=== PATIENT | female | born 1940 | race Caucasian/White ===

== ENCOUNTER 2017-08-03 06:54 | Emergency (ER) | payer MEDICARE ==
[~2017-08-03] VITALS: Ht 154.9 cm; Wt 74.8 kg
[~2017-08-03 06:54] MED LIST: CALCA500CH PO; CHOL10002 PO; Desyrel50 MG PO; FLONASE ALLERG9.9 ML; FLUT44OIA INH; FURO20 PO; GABA300 PO; Hair, Skin & N1 EACH PO; Medi-Lyte Tabl1 EACH PO; Micro-K10 MEQ PO; NORT25 PO; TRAZ50 PO
[2017-08-03] MEDS ORDERED: ATOR40TA (07:24)
[2017-08-03] MEDS ORDERED: METO50 PO (07:25)
[2017-08-03] MEDS ORDERED: AMLO5 PO (07:42)
[2017-08-03] MEDS ORDERED: GABA100 PO (07:42)
[2017-08-03] MEDS ORDERED: TAMS.4ER (07:42)
[2017-08-03] MEDS ORDERED: Cheratussin AC118 ML PO (09:01)
[2018-06-17] MEDS ORDERED: FURO20 PO (11:29)
[2018-06-17] MEDS ORDERED: POTCHL10ER PO (11:30)
[2018-06-17] MEDS ORDERED: NORT25 PO (11:30)
[2018-06-17] MEDS ORDERED: GABA300 PO (11:30)
[2018-06-17] MEDS ORDERED: LETR2.5 PO (11:31)
[2018-06-17] MEDS ORDERED: TRAZ50 PO (11:32)
[2018-06-17] MEDS ORDERED: Amoxicillin250 MG PO (11:34)
== END 2017-08-03 09:29 | disposition home or self-care (01) ==
LOC: ER 06:54
DX: J40 Bronchitis, not specified as acute or chronic (principal); Z79.899 Other long term (current) drug therapy; Z85.3 Personal history of malignant neoplasm of breast; Z90.710 Acquired absence of both cervix and uterus; Z90.49 Acquired absence of other specified parts of digestive tract; Z87.891 Personal history of nicotine dependence
CPT/HCPCS: 71046; 99283

== ENCOUNTER → 2017-12-31 | Outpatient (CLI) | payer MEDICARE ==
[~2017-12-31] MED LIST changes: +AMLO5 PO; +ATOR40TA; +Cheratussin AC118 ML PO; +GABA100 PO; +METO50 PO; +TAMS.4ER
[2017-12-31 15:38] LABS: Source, Urine Catheter
[2017-12-31 17:42] LABS: Bilirubin, Urine Neg (Neg); Blood, Urine Neg (Neg); Glucose Qualitative, Urine Neg (Neg); Ketones, Urine Neg (Neg); Leukocyte Esterase, Urine Neg (Neg); Nitrite, Urine Neg (Neg); Protein, Urine Neg (Neg); Specific Gravity, Urine 1.015 (1.003-1.022); Urobilinogen, Urine NORM (Normal)
[2017-12-31 17:53] LABS: Appearance, Urine Clear (Clear); Color, Urine Pale Yellow (P-Yellow)
== END | disposition home or self-care (01) ==
LOC: OLS 15:26 → LAB SHORT 15:26
PROVIDERS: Nurse Practitioner Women's Health
DX: N89.8 Other specified noninflammatory disorders of vagina (principal); R35.0 Frequency of micturition
CPT/HCPCS: 81003

== ENCOUNTER → 2018-04-06 | Outpatient (CLI) | payer MEDICARE ==
[2018-04-06 15:17] LABS: Source, Urine Catheter
[2018-04-06 15:56] LABS: Bilirubin, Urine Neg (Neg); Blood, Urine Neg (Neg); Glucose Qualitative, Urine Neg (Neg); Ketones, Urine Neg (Neg); Leukocyte Esterase, Urine Neg (Neg); Nitrite, Urine Neg (Neg); Protein, Urine Neg (Neg); Urobilinogen, Urine NORM (Normal)
[2018-04-06 16:28] LABS: Appearance, Urine Clear (Clear); Color, Urine Yellow (P-Yellow)
== END ==
LOC: LAB 15:16 → LAB SHORT 15:16
PROVIDERS: Nurse Practitioner Women's Health
DX: R30.0 Dysuria (principal)
CPT/HCPCS: 81003

== ENCOUNTER 2018-08-27 11:35 | Emergency (ER) | payer MEDICARE ==
[~2018-08-27] VITALS: Ht 157.5 cm; Wt 77.6 kg
[~2018-08-27 11:35] MED LIST changes: +Amoxicillin250 MG PO; +LETR2.5 PO; +POTCHL10ER PO
[2018-08-27 11:55] LABS: Source, Urine Catheter
[2018-08-27 12:27] LABS: BASOPHILS ABSOLUTE AUTO 0.03 K/mm3 (0.00-0.23); BASOPHILS PERCENT AUTO 0 % (0-2); EOSINOPHILS ABSOLUTE AUTO 0.03 K/mm3 (0.00-0.68); EOSINOPHILS PERCENT AUTO 0 % (0-6); Hematocrit 43.1 % (33.0-51.0); Hemoglobin 14.2 g/dL (11.5-16.0); IMMATURE GRAN ABSOLUTE AUTO 0.08 K/mm3 (0.00-0.10); IMMATURE GRAN PERCENT AUTO 0 % (0-1); LYMPHOCYTES ABSOLUTE AUTO 0.87 K/mm3 (0.84-5.20); LYMPHOCYTES PERCENT AUTO 5 % (21-46); MONOCYTES ABSOLUTE AUTO 1.34 K/mm3 (0.16-1.47); MONOCYTES PERCENT AUTO 7 % (4-13); Mean Corpuscular HGB Conc 32.9 g/dL (31.5-36.5); Mean Corpuscular Volume 91 fL (80-100); Mean Platelet Volume 9.3 fL (9.1-12.4); NEUTROPHILS ABSOLUTE AUTO 16.51 K/mm3 (1.96-9.15); NEUTROPHILS PERCENT AUTO 88 % (41-73); Platelet Count 312 K/mm3 (150-400); Red Blood Cell Count 4.73 M/mm3 (3.80-5.20); White Blood Cell Count 18.86 K/mm3 (4.00-11.30)
[2018-08-27 12:44] LABS: Appearance, Urine Clear (Clear); Bilirubin, Urine Neg (Neg); Blood, Urine Neg (Neg); Color, Urine Yellow (P-Yellow); Glucose Qualitative, Urine Neg (Neg); Ketones, Urine Neg (Neg); Leukocyte Esterase, Urine Neg (Neg); Nitrite, Urine Neg (Neg); Protein, Urine Neg (Neg); Specific Gravity, Urine 1.005 (1.003-1.022); Urobilinogen, Urine NORM (Normal)
[2018-08-27 12:47] LABS: International Normalized Ratio 0.97; Prothrombin Time Results 10.3 Sec (9.7-11.5)
[2018-08-27 12:50] LABS: Alanine Aminotransfer (ALT/SGP 24 U/L (12-78); Albumin/Globulin Ratio 1.3 (0.8-1.8); Alk Phos 85 U/L (50-136); Anion Gap 10 mmol/L (6-16); Aspartate Aminotrans (AST/SGOT 15 U/L (12-37); Bilirubin, Total 0.5 mg/dL (0.1-1.0); Blood Urea Nitrogen 13 mg/dL (8-24); Bun/Creatinine Ratio 17.1 (12.0-20.0); CO2, Blood 26 mmol/L (21-32); Calcium, Blood 8.6 mg/dL (8.5-10.1); Chloride, Blood 104 mmol/L (98-108); Creatinine, Blood 0.76 mg/dL (0.40-1.00); Globulin, Blood 3.1 g/dL (2.2-4.0); Glomerular Filtration Rate >60 (60-); Glucose, Blood 86 mg/dL (70-99); Potassium, Blood 3.6 mmol/L (3.5-5.5); Sodium, Blood 140 mmol/L (136-145); Total Protein, Blood 7.1 g/dL (6.4-8.2)
[2018-08-27 12:51] LABS: Influenza A Negative (NEGATIVE); Influenza B Negative (NEGATIVE)
[2018-08-27] MEDS ORDERED: Zofran8 MG PO (14:46)
[2018-08-27] MEDS ORDERED: HYDR1TAB94 PO (14:46)
[2018-08-28] MEDS ORDERED: MELATONIN5 M1 PO (15:40)
== END 2018-08-27 15:01 | disposition home or self-care (01) ==
LOC: ER 11:35
PROVIDERS: Physician Assistant
DX: K52.9 Noninfective gastroenteritis and colitis, unspecified (principal); M54.5 Low back pain; D49.89 Neoplasm of unspecified behavior of other specified sites; Z79.899 Other long term (current) drug therapy; Z87.891 Personal history of nicotine dependence; Z85.3 Personal history of malignant neoplasm of breast
CPT/HCPCS: 36415; 71046; 74177; 80053; 81003; 83605; 85025; 85610; 85730; 87040; 87086; 87147; 87804; 93005; 93010; 96361; 96365-59; 96375; 96376; 99284-25; J0696; J1170; J2405; J7030; Q9967

== ENCOUNTER 2018-08-28 08:18 | Inpatient (IN) | payer MEDICARE ==
[~2018-08-28] VITALS: Ht 154.9 cm; Wt 80.0 kg
[~2018-08-28 08:18] MED LIST changes: +HYDR1TAB94 PO; +Zofran8 MG PO
[2018-08-28 09:16] LABS: BASOPHILS ABSOLUTE AUTO 0.01 K/mm3 (0.00-0.23); BASOPHILS PERCENT AUTO 0 % (0-2); EOSINOPHILS ABSOLUTE AUTO 0.01 K/mm3 (0.00-0.68); EOSINOPHILS PERCENT AUTO 0 % (0-6); Hematocrit 39.1 % (33.0-51.0); Hemoglobin 12.7 g/dL (11.5-16.0); IMMATURE GRAN ABSOLUTE AUTO 0.05 K/mm3 (0.00-0.10); IMMATURE GRAN PERCENT AUTO 1 % (0-1); LYMPHOCYTES ABSOLUTE AUTO 0.86 K/mm3 (0.84-5.20); LYMPHOCYTES PERCENT AUTO 8 % (21-46); MONOCYTES ABSOLUTE AUTO 0.76 K/mm3 (0.16-1.47); MONOCYTES PERCENT AUTO 7 % (4-13); Mean Corpuscular HGB 30.3 pg (26.0-34.0); Mean Corpuscular HGB Conc 32.5 g/dL (31.5-36.5); Mean Corpuscular Volume 93 fL (80-100); Mean Platelet Volume 9.3 fL (9.1-12.4); NEUTROPHILS ABSOLUTE AUTO 9.31 K/mm3 (1.96-9.15); NEUTROPHILS PERCENT AUTO 85 % (41-73); Platelet Count 251 K/mm3 (150-400); RDW Coefficient Variation 14.6 % (11.7-14.2); RDW Standard Deviation 49.8 fL (35.1-46.3); Red Blood Cell Count 4.19 M/mm3 (3.80-5.20)
[2018-08-28 09:36] LABS: Alanine Aminotransfer (ALT/SGP 23 U/L (12-78); Albumin, Blood 3.4 g/dL (3.4-5.0); Albumin/Globulin Ratio 1.1 (0.8-1.8); Alk Phos 74 U/L (50-136); Anion Gap 8 mmol/L (6-16); Aspartate Aminotrans (AST/SGOT 17 U/L (12-37); Bilirubin, Total 0.7 mg/dL (0.1-1.0); Blood Urea Nitrogen 13 mg/dL (8-24); CO2, Blood 30 mmol/L (21-32); Calcium, Blood 8.4 mg/dL (8.5-10.1); Chloride, Blood 100 mmol/L (98-108); Creatinine, Blood 0.93 mg/dL (0.40-1.00); Globulin, Blood 3.2 g/dL (2.2-4.0); Glomerular Filtration Rate >60 (60-); Glucose, Blood 87 mg/dL (70-99); Potassium, Blood 3.7 mmol/L (3.5-5.5); Sodium, Blood 138 mmol/L (136-145); Total Protein, Blood 6.6 g/dL (6.4-8.2)
--- NOTE | 2018-08-28 13:14 | NUR ---
NOTIFIED DR. SCOTT PT CONCERNED ABOUR REDNESS, WARMTH AND FIRMNESS OF L BREAST AND ABOVE GROIN. PT REPORTS SHE DID NOT DISCUSS THIS WITH DR. DR. SCOTT REPORTS TALKING EXTENSIVELY WITH PT ABOUT THIS AND THAT SHE HAS CELLULITIS WHICH IS CURRENTLY BEING TREATED WITH ANTIBIOTICS. DR. SCOTT SAID TO CONTINUE TO MONITOR PT'S MENTAL STATUS. NO OTHER NEW ORDERS AT THIS TIME.
--- NOTE | 2018-08-28 13:56 | NUR ---
NOTIFIED DR. SCOTT PT C/O HEADACHE AND HAS NO PAIN MEDS ORDERED. DR. SCOTT SAID TO ORDER 650MG TYLENOL Q6H PRN. NO OTHER NEW ORDERS AT THIS TIME.
[2018-08-28] MEDS ORDERED: MELATONIN5 M1 PO (15:40)
--- NOTE | 2018-08-28 16:36 | NUR ---
SHIFT SUMMARY- PT NEW ADMIT THIS AFTERNOON. PT C/O PAIN IN HER BACK, L BREAST AND HEADACHE. MEDS GIVEN PER EMAR. PT DENIES N/V/D. PT DENIES SOB. RESP E/U ON RA. PT'S L BREAST AND PELVIC/GROIN AREA RED, WARM AND SWOLLEN. DR. SCOTT AWARE. AREAS OUTLINED IN [place]. INDEPENDENT IN THE ROOM. NO OTHER SIGNIFICANT CHANGES THIS SHIFT.
--- NOTE | 2018-08-28 16:56 | NUR ---
NOTIFIED DR. SCOTT PT REPORTS TYLENOL NOT CONTROLLING HER PAIN. PT REPORTS BEING PRESCRIBED NORCO YESTERDAY WHEN SHE D/C FROM ER. DR. SCOTT SAID TO ORDER NORCO 5/325 Q6H PRN. NO OTHER NEW ORDERS AT THIS TIME.
--- NOTE | 2018-08-28 17:51 | NUR ---
NOTIFIED DR. SCOTT PT REQUESTS TO BE MADE DNR STATUS.
[2018-08-28 20:19] LABS: Source, Urine Clean Catch
[2018-08-28 20:22] LABS: Bilirubin, Urine Neg (Neg); Blood, Urine Neg (Neg); Glucose Qualitative, Urine Neg (Neg); Ketones, Urine Neg (Neg); Leukocyte Esterase, Urine 3+ (Neg); Nitrite, Urine Neg (Neg); Protein, Urine 1+ (Neg); Specific Gravity, Urine 1.005 (1.003-1.022); Urobilinogen, Urine NORM (Normal); pH, Urine 6.5 (5.0-8.0)
[2018-08-28 20:32] LABS: Appearance, Urine Clear (Clear); Color, Urine Pale Yellow (P-Yellow)
[2018-08-28 20:33] LABS: Red Blood Cells, Urine Not Seen /hpf (0-2); White Blood Cells, Urine 25-50 /hpf (0-5)
[2018-08-28 20:34] LABS: Bacteria Rare /hpf; Squamous Epithelial Cells Few /hpf (Few); Transitional Epithelial Cells Few /hpf ({null, 0-Rare})
--- NOTE | 2018-08-29 03:55 | NUR ---
SHIFT SUMMARY PT IS A&O, PLEASANT AND CO-OP. INDEPENDANT TO BTHRM. RESTING QUIETLY IN BED, TALKING ON PHONE, DURING BS REPORT. ADMITTED FOR BACTEREMIA AFTER OUTPT BCX CAME BACK POSITIVE AND PT INSTRUCTED TO RETURN TO HOSPITAL FOR ABX. PT REPORTED REDNESS, WARMTH, AND SWELLING TO L BREAST AND AXILLARY AREA WELL LOWER ABD, DOWN INTO GROIN AND INNER THIGH AREA. PT REPORTED THAT NEW ON FRIDAY AND NOT PRESENT WHEN SHE HAD COME IN TO ER FOR BCX'S THE DAY BEFORE. RED AREA FIRM FROM SWELLING WITH EDGES MARKED. PT WITH HX OF NON-HODGKIN LYPHOMA, LAST CHEMO 08/17/18. HAS REPORTED A HEAD ACHE TWICE THIS SHIFT. MEDICATED PER EMAR. UA OBTAINED AND SENT AFTER START OF SHIFT. SCD'S ON; PT INSTRUCTED HOW TO REMOVE WHEN GETTING UP TO BTHRM. CALL LT IN REACH. ABLE TO MAKE NEEDS KNOWN.
[2018-08-29 05:11] LABS: BASOPHILS ABSOLUTE AUTO 0.02 K/mm3 (0.00-0.23); BASOPHILS PERCENT AUTO 0 % (0-2); EOSINOPHILS ABSOLUTE AUTO 0.09 K/mm3 (0.00-0.68); EOSINOPHILS PERCENT AUTO 1 % (0-6); Hematocrit 39.6 % (33.0-51.0); Hemoglobin 12.6 g/dL (11.5-16.0); IMMATURE GRAN ABSOLUTE AUTO 0.03 K/mm3 (0.00-0.10); IMMATURE GRAN PERCENT AUTO 0 % (0-1); LYMPHOCYTES ABSOLUTE AUTO 1.68 K/mm3 (0.84-5.20); LYMPHOCYTES PERCENT AUTO 22 % (21-46); MONOCYTES ABSOLUTE AUTO 0.98 K/mm3 (0.16-1.47); MONOCYTES PERCENT AUTO 13 % (4-13); Mean Corpuscular HGB 29.9 pg (26.0-34.0); Mean Corpuscular HGB Conc 31.8 g/dL (31.5-36.5); Mean Corpuscular Volume 94 fL (80-100); Mean Platelet Volume 9.3 fL (9.1-12.4); NEUTROPHILS ABSOLUTE AUTO 4.97 K/mm3 (1.96-9.15); NEUTROPHILS PERCENT AUTO 64 % (41-73); Platelet Count 227 K/mm3 (150-400); RDW Coefficient Variation 14.5 % (11.7-14.2); RDW Standard Deviation 49.9 fL (35.1-46.3); Red Blood Cell Count 4.22 M/mm3 (3.80-5.20); White Blood Cell Count 7.77 K/mm3 (4.00-11.30)
[2018-08-29 05:34] LABS: Alanine Aminotransfer (ALT/SGP 20 U/L (12-78); Albumin, Blood 3.1 g/dL (3.4-5.0); Albumin/Globulin Ratio 1.1 (0.8-1.8); Alk Phos 72 U/L (50-136); Anion Gap 6 mmol/L (6-16); Aspartate Aminotrans (AST/SGOT 18 U/L (12-37); Bilirubin, Total 0.5 mg/dL (0.1-1.0); Blood Urea Nitrogen 9 mg/dL (8-24); Bun/Creatinine Ratio 13.4 (12.0-20.0); CO2, Blood 28 mmol/L (21-32); Calcium, Blood 8.6 mg/dL (8.5-10.1); Chloride, Blood 107 mmol/L (98-108); Creatinine, Blood 0.67 mg/dL (0.40-1.00); Globulin, Blood 2.8 g/dL (2.2-4.0); Glomerular Filtration Rate >60 (60-); Glucose, Blood 110 mg/dL (70-99); Potassium, Blood 3.7 mmol/L (3.5-5.5); Sodium, Blood 141 mmol/L (136-145); Total Protein, Blood 5.9 g/dL (6.4-8.2)
--- NOTE | 2018-08-29 17:45 | NUR ---
SHIFT SUMMARY PATIENT HAS BEEN SWITCHED TO ORAL ANTIBIOTICS, NO IV ACCESS OKAYED BY DR. SCOTT. PATIENT HAS BEEN ABLE TO MAKE HER NEEDS KNOWN. NO ACUTE CHANGES NOTED.
--- NOTE | 2018-08-30 06:04 | NUR ---
NOC SHIFT SUMMARY THIS PT HAS BEEN PLEASANT AND COOPERATIVE WITH CARE THIS NIGHT. SHE REQUESTED EARPLUGS EARLY IN THE EVENING AND WENT TO SLEEP AROUND 2200. SHE HAS SLEPT RESTFULLY THIS NIGHT AND HAS NOT COMPLIANED OR REQUESTED ANYTHING. AT PRESENT APPEARS TO BE SLEEPING RESTFULLY. WILL CONTINUE TO MONITOR.
[2018-08-30] MEDS ORDERED: ESCI10 PO (08:04)
[2018-08-30] MEDS ORDERED: LINE600 PO (08:05)
[2018-08-30] MEDS ORDERED: CEPH500 PO (09:56)
--- NOTE | 2018-08-30 13:09 | NUR ---
DISCHARGE SUMMARY: PT IS A&OX4. REPORTS PAIN IS MANAGEABLE WITH 1 PO NORCO. TOLERATED BREAKFAST WELL. D/C MEDICATIONS WERE FAXED TO [facility] ON [address] PER PT REQ. PT AND HER DTR "KARLENE" VERBILIZED UNDERSTANDING OF D/C INSTRUCTIONS. SHE HAS HER BELONGINGS WITH HER. 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
== END 2018-08-30 10:44 | disposition home or self-care (01) | DRG 600 ==
LOC: ER 08:18 → MEDS 08:58 → ENPENDDIS 08-30 07:00 → MEDS 08-30 10:44
PROVIDERS: Emergency Medicine; ADMIT Student in an Organized Health Care Education/Training Program
DX: N61.0 Mastitis without abscess (principal); L03.311 Cellulitis of abdominal wall; R78.81 Bacteremia; C85.90 Non-Hodgkin lymphoma, unspecified, unspecified site; J60 Coalworker's pneumoconiosis; Z92.3 Personal history of irradiation; Z85.3 Personal history of malignant neoplasm of breast; Z87.891 Personal history of nicotine dependence; Z66 Do not resuscitate; R19.09 Other intra-abdominal and pelvic swelling, mass and lump
CPT/HCPCS: 36415; 80053; 81001; 83605; 85025; 87040; 87086; 96361; 96365; 96375; 99284-25; J0692; J1170; J3370; J7050; J7120

== ENCOUNTER → 2018-11-05 | Outpatient (CLI) | payer MEDICARE ==
[~2018-11-05] MED LIST changes: +CEPH500 PO; +ESCI10 PO; +LINE600 PO; +MELATONIN5 M1 PO
== END | disposition home or self-care (01) ==
LOC: LAB EV 14:10 → LAB SHORT 14:10
DX: N39.46 Mixed incontinence (principal)
CPT/HCPCS: 87086

== ENCOUNTER 2019-03-16 12:23 | Day surgery (SDC) | payer MEDICARE ==
[~2019-03-16] VITALS: Ht 154.9 cm; Wt 74.7 kg
[~2019-03-16 12:23] MED LIST changes: +BETA.05TCA TOP; +BETA.05TO TOP; +Flonase 0.05% N16 GM; +Multiple Vitam1 EAC1 PO; +POTA10T PO; +TRAM50 PO; +VITAMIN B125000 MCG PO; +VITAMIN D5000 UNIT PO; +Vitamin C100 M1 PO; +YUVAFEM10 MCG VAG
--- NOTE | 2019-03-16 12:57 | NUR ---
History, Chart, Medications and Allergies reviewed before start of procedure. Patient confirms NPO status and agrees with scheduled surgery.
--- NOTE | 2019-03-16 13:11 | NUR ---
Lungs clear T/O to Auscultation.
--- NOTE | 2019-03-16 13:19 | NUR ---
Patient reports completing Chlorhexadine shower X2 prior to admission to hospital.
[2019-03-17 04:36] LABS: BASOPHILS ABSOLUTE AUTO 0.01 K/mm3 (0.00-0.23); BASOPHILS PERCENT AUTO 0 % (0-2); EOSINOPHILS PERCENT AUTO 0 % (0-6); Hematocrit 33.9 % (33.0-51.0); Hemoglobin 11.4 g/dL (11.5-16.0); IMMATURE GRAN ABSOLUTE AUTO 0.13 K/mm3 (0.00-0.10); IMMATURE GRAN PERCENT AUTO 1 % (0-1); LYMPHOCYTES PERCENT AUTO 5 % (21-46); MONOCYTES ABSOLUTE AUTO 0.94 K/mm3 (0.16-1.47); MONOCYTES PERCENT AUTO 6 % (4-13); Mean Corpuscular HGB 30.8 pg (26.0-34.0); Mean Corpuscular HGB Conc 33.6 g/dL (31.5-36.5); Mean Corpuscular Volume 92 fL (80-100); Mean Platelet Volume 9.4 fL (9.1-12.4); NEUTROPHILS ABSOLUTE AUTO 14.89 K/mm3 (1.96-9.15); NEUTROPHILS PERCENT AUTO 89 % (41-73); Platelet Count 302 K/mm3 (150-400); RDW Coefficient Variation 13.2 % (11.7-14.2); RDW Standard Deviation 44.3 fL (35.1-46.3); White Blood Cell Count 16.77 K/mm3 (4.00-11.30)
[2019-03-17 04:54] LABS: Anion Gap 6 mmol/L (6-16); Blood Urea Nitrogen 14 mg/dL (8-24); Bun/Creatinine Ratio 20.8 (12.0-20.0); CO2, Blood 27 mmol/L (21-32); Chloride, Blood 106 mmol/L (98-108); Creatinine, Blood 0.67 mg/dL (0.40-1.00); Glomerular Filtration Rate >60 (60-); Glucose, Blood 124 mg/dL (70-99); Magnesium, Blood 1.9 mg/dL (1.6-2.4); Potassium, Blood 4.3 mmol/L (3.5-5.5); Sodium, Blood 139 mmol/L (136-145)
--- NOTE | 2019-03-17 07:55 | NUR ---
pt wanting to brush her teeth nursery nurse assisted up to chair pt stated pain is min stated her upper leg feels swollen and yesterday had some numbness to her toes but it has resolved
--- NOTE | 2019-03-17 10:29 | NUR ---
PT DONE WORKING WITH PHYSICAL THERAPY OK TO GO HOME TODAY
[2019-03-17] MEDS ORDERED: OXYC5 PO (13:58)
--- NOTE | 2019-03-17 14:00 | NUR ---
dr montejo by to see pt ok to discharge home
[2019-03-17] MEDS ORDERED: ASPI325EC PO (14:29)
--- NOTE | 2019-03-17 14:45 | NUR ---
discharge instructions reviewed with pt verbalized rx given dressing also given with instructions on when to change will have diego look at the dressing prior to discharge to see if it needs changed nicholas or sund
--- NOTE | 2019-03-17 15:10 | NUR ---
wc escort to car no acute changes
== END 2019-03-17 15:02 | disposition home or self-care (01) ==
LOC: ORSCMMR 12:23 → ORD 14:45 → ORSCMMR 18:33 → SURS 18:33 → ORSCMMR 03-17 15:02
PROVIDERS: Orthopaedic Surgery
PROC: 0SRC0J9 Replacement of Right Knee Joint with Synthetic Substitute, Cemented, Open Approach (ICD-10-PCS; principal; 2019-03-16 14:45)
DX: M17.11 Unilateral primary osteoarthritis, right knee (principal); G62.9 Polyneuropathy, unspecified; Z79.899 Other long term (current) drug therapy; Z87.891 Personal history of nicotine dependence
CPT/HCPCS: 36415; 73560-RT; 80048; 83735; 85025; 86850; 86900; 86901; 88300; 97110; 97116; 97161; 97530; C1776; J0171; J0690; J0735; J1100; J1885; J2250; J2370; J2405; J2704; J2795; J3010; J7120; Q0163

== ENCOUNTER 2020-04-29 05:52 | Inpatient (IN) | payer MEDICARE, OTHER ==
[~2020-04-29] VITALS: Ht 154.9 cm; Wt 83.3 kg
[~2020-04-29 05:52] MED LIST changes: +ASPI325EC PO; +OXYC5 PO
[2020-04-29 07:57] LABS: BASOPHILS PERCENT AUTO 0 % (0-2); EOSINOPHILS PERCENT AUTO 0 % (0-6); Hematocrit 38.6 % (33.0-51.0); Hemoglobin 12.5 g/dL (11.5-16.0); IMMATURE GRAN ABSOLUTE AUTO 0.02 K/mm3 (0.00-0.10); IMMATURE GRAN PERCENT AUTO 0 % (0-1); LYMPHOCYTES ABSOLUTE AUTO 0.84 K/mm3 (0.84-5.20); LYMPHOCYTES PERCENT AUTO 17 % (21-46); MONOCYTES ABSOLUTE AUTO 0.48 K/mm3 (0.16-1.47); MONOCYTES PERCENT AUTO 10 % (4-13); Mean Corpuscular HGB 30.1 pg (26.0-34.0); Mean Corpuscular HGB Conc 32.4 g/dL (31.5-36.5); Mean Corpuscular Volume 93 fL (80-100); Mean Platelet Volume 9.7 fL (9.1-12.4); NEUTROPHILS ABSOLUTE AUTO 3.67 K/mm3 (1.96-9.15); NEUTROPHILS PERCENT AUTO 73 % (41-73); Platelet Count 174 K/mm3 (150-400); RDW Standard Deviation 47.4 fL (35.1-46.3); Red Blood Cell Count 4.15 M/mm3 (3.80-5.20); White Blood Cell Count 5.01 K/mm3 (4.00-11.30)
[2020-04-29 08:13] LABS: Alanine Aminotransfer (ALT/SGP 18 U/L (12-78); Albumin, Blood 3.2 g/dL (3.4-5.0); Alk Phos 72 U/L (50-136); Anion Gap 8 mmol/L (6-16); Aspartate Aminotrans (AST/SGOT 22 U/L (12-37); Bilirubin, Total 0.3 mg/dL (0.1-1.0); Blood Urea Nitrogen 9 mg/dL (8-24); Bun/Creatinine Ratio 14.3 (12.0-20.0); CO2, Blood 24 mmol/L (21-32); Calcium, Blood 7.9 mg/dL (8.5-10.1); Chloride, Blood 105 mmol/L (98-108); Creatinine, Blood 0.63 mg/dL (0.40-1.00); Globulin, Blood 3.2 g/dL (2.2-4.0); Glomerular Filtration Rate >60 (60-); Glucose, Blood 94 mg/dL (70-99); Magnesium, Blood 1.8 mg/dL (1.6-2.4); Potassium, Blood 2.9 mmol/L (3.5-5.5); Sodium, Blood 137 mmol/L (136-145); Total Protein, Blood 6.4 g/dL (6.4-8.2)
[2020-04-29] MEDS ORDERED: ESCI20 PO (11:55)
[2020-04-29] MEDS ORDERED: K-Dur10 MEQ PO (11:56)
[2020-04-29] MEDS ORDERED: LETROZOLE2.5 MG PO (11:56)
[2020-04-29] MEDS ORDERED: TRAZ150T57 PO (11:56)
[2020-04-29] MEDS ORDERED: FUROSEMIDE20 MG PO (11:57)
[2020-04-29] MEDS ORDERED: NORT25 PO ×2 (11:57→12:05)
[2020-04-29] MEDS ORDERED: Hair, Skin & N1 EACH PO (12:06)
[2020-04-29] MEDS ORDERED: TRAZ50 PO (12:07)
[2020-04-29 13:51] LABS: Source, Urine Clean Catch
[2020-04-29 14:00] LABS: Appearance, Urine Clear (Clear); Bilirubin, Urine Neg (Neg); Blood, Urine Neg (Neg); Color, Urine Yellow (P-Yellow); Glucose Qualitative, Urine Neg (Neg); Ketones, Urine 3+ (Neg); Leukocyte Esterase, Urine Neg (Neg); Nitrite, Urine Neg (Neg); Protein, Urine 1+ (Neg); Specific Gravity, Urine 1.015 (1.003-1.022); Urobilinogen, Urine NORM (Normal)
--- NOTE | 2020-04-29 15:07 | NUR ---
PT ARRIVED TO PCU 7 FROM ED, DAUGHTER IN ATTENDENCE, SHE IS COVID +, SHE IS ABLE TO STAND AND TRANSFER HERSELF TO BED FROM [facility], A/OX3, PLEASANT AND COOPERATIVE WITH CARE, FOLLOWS COMMANDS WELL, REPORTS SHE IS FEELING A LOT BETTER THAN WHEN SHE FIRST CAME IN, LUNGS ARE COURSE T/O, RESP EVEN AND UNLABORED, IS CURRENTLY ON 4 LITERS 02 VIA N/C, REPORTS OCC PRODUCTIVE COUGH, HRR, TELE IN PLACE RUNNING SR PER MONITOR, SEE STRIP, NO EDEMA NOTED, PPP+1, CAP REFILL <3SEC, VS STABLE, AFEBRILE, IV SITE IS CLEAR AND PATENT TO RAC, HUNG NS WITH 20K+, AT RATE OF 100MLS/HR, BTX4, HYPERACTIVE, REPORTS VERY LIQUID STOOLS AND WAS GIVEN AN IMMODIUM, NO STOOLS SINCE, VOIDS WIHTOUT DIFF, SKIN C/W/D, PRECIOUS HENDRIX, ORIENTED TO ROOM LAYOUT AND CALL SYSTEM, CALL LIGTH IN REACH.
--- NOTE | 2020-04-29 18:29 | NUR ---
PT DOING OK, SHE DOESN'T HAVE AN APPETITE, IS WATCHING TV. V.S. STABLE, NO FURTHER CHANGES. CALL LIGHT IN REACH.
[2020-04-30 04:39] LABS: BASOPHILS PERCENT AUTO 0 % (0-2); EOSINOPHILS PERCENT AUTO 0 % (0-6); Hematocrit 40.6 % (33.0-51.0); IMMATURE GRAN ABSOLUTE AUTO 0.01 K/mm3 (0.00-0.10); IMMATURE GRAN PERCENT AUTO 0 % (0-1); LYMPHOCYTES ABSOLUTE AUTO 0.59 K/mm3 (0.84-5.20); LYMPHOCYTES PERCENT AUTO 21 % (21-46); MONOCYTES ABSOLUTE AUTO 0.31 K/mm3 (0.16-1.47); MONOCYTES PERCENT AUTO 11 % (4-13); Mean Corpuscular HGB 30.1 pg (26.0-34.0); Mean Corpuscular Volume 94 fL (80-100); Mean Platelet Volume 9.8 fL (9.1-12.4); NEUTROPHILS ABSOLUTE AUTO 1.88 K/mm3 (1.96-9.15); NEUTROPHILS PERCENT AUTO 67 % (41-73); Platelet Count 164 K/mm3 (150-400); RDW Standard Deviation 49.1 fL (35.1-46.3); Red Blood Cell Count 4.32 M/mm3 (3.80-5.20); White Blood Cell Count 2.79 K/mm3 (4.00-11.30)
[2020-04-30 05:04] LABS: Alanine Aminotransfer (ALT/SGP 18 U/L (12-78); Albumin, Blood 2.7 g/dL (3.4-5.0); Albumin/Globulin Ratio 0.9 (0.8-1.8); Alk Phos 69 U/L (50-136); Anion Gap 8 mmol/L (6-16); Aspartate Aminotrans (AST/SGOT 32 U/L (12-37); Bilirubin, Total 0.2 mg/dL (0.1-1.0); Blood Urea Nitrogen 8 mg/dL (8-24); CO2, Blood 20 mmol/L (21-32); Calcium, Blood 7.8 mg/dL (8.5-10.1); Chloride, Blood 114 mmol/L (98-108); Creatinine, Blood 0.42 mg/dL (0.40-1.00); Globulin, Blood 3.1 g/dL (2.2-4.0); Glomerular Filtration Rate >60 (60-); Glucose, Blood 131 mg/dL (70-99); Magnesium, Blood 1.8 mg/dL (1.6-2.4); Potassium, Blood 3.6 mmol/L (3.5-5.5); Sodium, Blood 142 mmol/L (136-145); Total Protein, Blood 5.8 g/dL (6.4-8.2)
--- NOTE | 2020-04-30 06:18 | NUR ---
SHIFT SUMMARY PT A&O X4, ANSWERS QUESTIONS APPROPRIATELY. SP02>94% ON 3L NC. PT HAS A PRODUCTIVE COUGH. C/O OF "RATTLE" IN HER CHEST. RESPIRATORY IN TO SEE PT. GAVE PT A PICKLE DEVICE. THIS RN WITNESSED PT USING PICKLE MULTIPLE TIMES. PT STATES IT HELPS CLEAR THE RATTLE. TELEMETRY READS SR 70'S. PT DENIES CP/PRESSURE. PT UP TO BSC WITH SBA AND WALKER. PT HAS OCCASIONAL INCONTINENCE WHEN COUGHING, DRY ATTENDS PLACE. NS W/ KCL INFUSING PER EMAR. WILL CONTINUE TO MONITOR.
--- NOTE | 2020-04-30 17:45 | NUR ---
SHIFT SUMMARY PT IS ALERT AND ORIENTEDx4. PT HAS REMAINED ON 3L NC TODAY AND HER O2 SATS REMAIN STABLE AT REST. WITH ACTIVITY TO [facility]. PT WILL BECOME DYSPNIC AND O2 SATS WILL DECREASE TO MID 80'S AND PT WOULD TAKE A COUPLE MINUTES TO RECOVER HER OXYGEN LEVELS. PT DID TOLERATE, WITH NO DROP IN SPO2, SITTING UP IN CHAIR. PT HAD BACK PAIN THIS AFTER NOON, TREATED WITH PRN PAIN MEDS AND REPOSITIONED TO SIT IN CHAIR. PT'S PAIN IMPROVED AND SHE FELT BETTER SITTING IN CHAIR. VITALS HAVE REMAINED STABLE TODAY. TELEMETRY HAS SHOWN PT TO BE IN NSR.
[2020-05-01 04:04] LABS: BASOPHILS PERCENT AUTO 0 % (0-2); EOSINOPHILS PERCENT AUTO 0 % (0-6); Hemoglobin 12.6 g/dL (11.5-16.0); IMMATURE GRAN ABSOLUTE AUTO 0.02 K/mm3 (0.00-0.10); IMMATURE GRAN PERCENT AUTO 0 % (0-1); LYMPHOCYTES PERCENT AUTO 15 % (21-46); MONOCYTES ABSOLUTE AUTO 0.64 K/mm3 (0.16-1.47); MONOCYTES PERCENT AUTO 12 % (4-13); Mean Corpuscular HGB 29.6 pg (26.0-34.0); Mean Corpuscular HGB Conc 32.3 g/dL (31.5-36.5); Mean Corpuscular Volume 92 fL (80-100); NEUTROPHILS ABSOLUTE AUTO 3.84 K/mm3 (1.96-9.15); NEUTROPHILS PERCENT AUTO 72 % (41-73); Platelet Count 202 K/mm3 (150-400); RDW Standard Deviation 47.3 fL (35.1-46.3); Red Blood Cell Count 4.25 M/mm3 (3.80-5.20)
[2020-05-01 04:30] LABS: Alanine Aminotransfer (ALT/SGP 27 U/L (12-78); Albumin, Blood 2.7 g/dL (3.4-5.0); Albumin/Globulin Ratio 0.9 (0.8-1.8); Alk Phos 69 U/L (50-136); Anion Gap 6 mmol/L (6-16); Aspartate Aminotrans (AST/SGOT 43 U/L (12-37); Bilirubin, Total 0.3 mg/dL (0.1-1.0); Blood Urea Nitrogen 10 mg/dL (8-24); Bun/Creatinine Ratio 19.2 (12.0-20.0); CO2, Blood 26 mmol/L (21-32); Calcium, Blood 7.8 mg/dL (8.5-10.1); Chloride, Blood 111 mmol/L (98-108); Creatinine, Blood 0.52 mg/dL (0.40-1.00); Glomerular Filtration Rate >60 (60-); Glucose, Blood 156 mg/dL (70-99); Magnesium, Blood 2.1 mg/dL (1.6-2.4); Potassium, Blood 3.7 mmol/L (3.5-5.5); Sodium, Blood 143 mmol/L (136-145); Total Protein, Blood 5.7 g/dL (6.4-8.2)
--- NOTE | 2020-05-01 06:45 | NUR ---
SHIFT SUMMARY: JONATHAN IS A&OX4. VSS, NO ACUTE EVENTS OVERNIGHT. SHE IS MAINTAINING O2 SATURATIONS ON 4 L NC. SHE IS A ONE PERSON ASSIST TO THE BEDSIDE COMMODE. SHE STATES THAT SHE FEELS SITTING UP IN THE CHAIR YESTERDAY WAS EFFECTIVE FOR ALLEVIATING HER CHRONIC BACK PAIN AND ASSISTING HER TO BREATHE DEEPER. SHE WAS ENCOURAGED TO SIT UP IN THE CHAIR TODAY AND TO USE THE PRN RESPIRATORY TX IF NEEDED. SHE IS TOLERATING PO INTAKE WELL. ATTENDS IN PLACE. SHE USES THE CALL LIGHT APPROPRIATELY. SHE IS LYING IN BED WITH THE CALL LIGHT IN REACH. WILL REPORT TO DAY SHIFT RN.
--- NOTE | 2020-05-01 19:46 | NUR ---
SUMMARY NO ACUTE CHANGES NOTED THROUGH THE DAY. PT REMAINS ON 3L O2 VIA NC, VSS, 1 ASSIST IN THE ROOM. SHE WAS ABLE TO AMBULATE A FEW STEPS TO THE BSC, STAND TO BRUSH HER TEETH & WAS ENC TO B AND B GANG WORKER PLACE USING HER FWW IN FRONT OF HER CHAIR TO STRENGHTHEN HER LEGS AND ENC DEEP BREATHING. O2 SATS REMAIN >94% WITH ACTIVITY. NORCO GIVEN FOR PAIN, PT IS TOLERATING PO INTAKE, VOIDING WNL, BM REPORTED TODAY. PT'S DAUGHTER HAS BEEN IN THE ROOM TODAY WITH HER & WILL ASSIST WITH CARE. REPORT GIVEN TO MONO LOPEZ.
--- NOTE | 2020-05-02 05:56 | NUR ---
SHIFT SUMMARY PATIENT PLEASENT AND COOPERATIVE THROUGHOUT THE NIGHT. PATIENT UP IN CHAIR FOR SEVERAL HOURS AT THE BEGINNING OF THE SHIFT BUT THEN MOVED BACK TO THE BED. PATIENT ABLE TO TRANSFER SELF FROM THE CHAIR TO THE BE WITH SBA. PATIENT THEN APPEARED TO SLEEP WELL THROUGHOUT THE REST OF THE NIGHT. CONTINUOUS BIOX IN PLACE, PATIENT REMAINED ON 3L O2 VIA N/C. VITAL SIGNS CHARTED. WILL CONTINUE TO MONITOR PATIENT AND REPORT TO ONCOMING RN.
--- NOTE | 2020-05-02 17:06 | NUR ---
SHIFT SUMMARY PT A&Ox3; CALM AND COOPERATIVE WITH CARE. PT RESTING IN BED. UP TO CHIAR AND BSC WITH SBA. PT REPORTS BACK PAIN, MEDICATED x1 WITH POSITIVE RESULTS. PT SOB WITH EXERTION; STATES COUGH IS DRY; SPO2 >90% ON 3L O2 VIA NC THIS AM TITRATED DOWN TO 2L O2 VIA NC. PT JOSETTE NAUSEA AND DIZZINESS. VSS. NO OTHER ACUTE CHANGES NOTED DURING SHIFT. WILL CONTINUE TO MONITOR UNTIL REPORT GIVEN TO ONCOMING RN.
--- NOTE | 2020-05-03 06:01 | NUR ---
SHIFT SUMMARY NO ACUTE CHANGES THIS SHIFT. MEDICATED FOR PAIN X2. PT SLEPT T/O THE NIGHT. PT IS LAYING IN BED WITH EYES CLOSED, EVEN AND UNLABORED RESPIRATIONS. NO APPARENT NEEDS OR DISTRESS AT THIS TIME. CALL LIGHT AND PERSONAL ITEMS WITHIN REACH. BED IN LOWERED POSITION. WILL CONTINUE TO MONITOR UNTIL REPORT GIVEN TO DAY RN.
[2020-05-03] MEDS ORDERED: PROAIR RESPICL90 MCG INH (14:10)
[2020-05-03] MEDS ORDERED: AZIT250 PO (14:11)
[2020-05-03] MEDS ORDERED: DEXA2 PO (14:15)
[2020-05-03] MEDS ORDERED: CEFD300 PO (14:16)
--- NOTE | 2020-05-03 18:34 | NUR ---
DISCHARGE SUMMARY PT A&Ox4; CALM AND COOPERATIVE WITH CARE. PT RESTING IN BED DURING SHIFT. UP TO BSC WITH SBA. PT REPORTS BACK PAIN AND HEADACHE THIS AM; MEDICATED PER EMAR WITH POSITIVE RESULTS. PT REPORTS SOB AND COUGH IMPROVING. SPO2 >90% ON 1-2L O2 VIA NC; HOME O2 EVAL COMPLETED; O2 ORDERS [facility] TO ROOM TO PROVIDE PORTABLE O2 TANK. PT RECEIVING IV ANTIBIOTICS, IV REMDESIVIR AND PO STEROIDS. VSS. NOT OTHER ACUTE CHAGES NOTED DURING SHIFT. PT EDUCATED ON DISCHARGE INSTRUCTIONS, FOLLOW UP APPOINTMENTS, MEDICATIONS AND ISOLATION. PRESCRIPTIONS FAXED TO [facility]; FOR DELIVERY SERVICE. PT LEFT ROOM VIA WHEELCHAIR AT 1332.
== END 2020-05-03 15:36 | disposition home or self-care (01) | DRG 871 ==
LOC: ER 05:52 → PCU 10:40
PROVIDERS: Emergency Medicine; ADMIT Family Medicine
PROC: XW033E5 Introduction of Remdesivir Anti-infective into Peripheral Vein, Percutaneous Approach, New Technology Group 5 (ICD-10-PCS; principal; 2020-04-29)
PROC: XW033E5 Introduction of Remdesivir Anti-infective into Peripheral Vein, Percutaneous Approach, New Technology Group 5 (ICD-10-PCS; 2020-04-30)
PROC: XW033E5 Introduction of Remdesivir Anti-infective into Peripheral Vein, Percutaneous Approach, New Technology Group 5 (ICD-10-PCS; 2020-04-30)
PROC: XW033E5 Introduction of Remdesivir Anti-infective into Peripheral Vein, Percutaneous Approach, New Technology Group 5 (ICD-10-PCS; 2020-04-30)
PROC: XW033E5 Introduction of Remdesivir Anti-infective into Peripheral Vein, Percutaneous Approach, New Technology Group 5 (ICD-10-PCS; 2020-04-30)
DX: A41.89 Other specified sepsis (principal); U07.1 COVID-19; J12.89 Other viral pneumonia; J96.01 Acute respiratory failure with hypoxia; J44.1 Chronic obstructive pulmonary disease with (acute) exacerbation; R65.20 Severe sepsis without septic shock; Z96.651 Presence of right artificial knee joint; E66.9 Obesity, unspecified; E86.0 Dehydration; Z90.12 Acquired absence of left breast and nipple; E87.6 Hypokalemia; Z87.891 Personal history of nicotine dependence; J84.10 Pulmonary fibrosis, unspecified; G47.00 Insomnia, unspecified; Z99.81 Dependence on supplemental oxygen; Z68.32 Body mass index [BMI] 32.0-32.9, adult; B37.7 Candidal sepsis
CPT/HCPCS: 36415; 71045; 80053; 83605; 83735; 84145; 85025; 86140; 87040; 93005; 93010; 94667; 94760; 94761; 94762; 96361; 96365; 96367; 99285-25; A9270; A9270-GY; J0456; J0696; J1650; J3480; J7030; J7050; U0003

== ENCOUNTER 2020-05-11 16:30 | Inpatient (IN) | payer MEDICARE, OTHER ==
[~2020-05-11] VITALS: Ht 154.9 cm; Wt 71.8 kg
[~2020-05-11 16:30] MED LIST changes: +AZIT250 PO; +CEFD300 PO; +DEXA2 PO; +ESCI20 PO; +FUROSEMIDE20 MG PO; +K-Dur10 MEQ PO; +LETROZOLE2.5 MG PO; +PROAIR RESPICL90 MCG INH; +TRAZ150T57 PO
[2020-05-11 17:08] LABS: BASOPHILS ABSOLUTE AUTO 0.02 K/mm3 (0.00-0.23); BASOPHILS PERCENT AUTO 0 % (0-2); EOSINOPHILS PERCENT AUTO 0 % (0-6); Hematocrit 43.7 % (33.0-51.0); Hemoglobin 14.5 g/dL (11.5-16.0); IMMATURE GRAN ABSOLUTE AUTO 0.08 K/mm3 (0.00-0.10); IMMATURE GRAN PERCENT AUTO 1 % (0-1); LYMPHOCYTES ABSOLUTE AUTO 1.37 K/mm3 (0.84-5.20); LYMPHOCYTES PERCENT AUTO 13 % (21-46); MONOCYTES ABSOLUTE AUTO 0.73 K/mm3 (0.16-1.47); MONOCYTES PERCENT AUTO 7 % (4-13); Mean Corpuscular HGB 30.3 pg (26.0-34.0); Mean Corpuscular HGB Conc 33.2 g/dL (31.5-36.5); Mean Corpuscular Volume 91 fL (80-100); Mean Platelet Volume 9.4 fL (9.1-12.4); NEUTROPHILS ABSOLUTE AUTO 8.27 K/mm3 (1.96-9.15); NEUTROPHILS PERCENT AUTO 79 % (41-73); Platelet Count 397 K/mm3 (150-400); RDW Coefficient Variation 13.9 % (11.7-14.2); RDW Standard Deviation 46.6 fL (35.1-46.3); Red Blood Cell Count 4.78 M/mm3 (3.80-5.20); White Blood Cell Count 10.47 K/mm3 (4.00-11.30)
[2020-05-11 17:19] LABS: Alanine Aminotransfer (ALT/SGP 51 U/L (12-78); Albumin, Blood 2.7 g/dL (3.4-5.0); Albumin/Globulin Ratio 0.7 (0.8-1.8); Alk Phos 115 U/L (50-136); Anion Gap 8 mmol/L (6-16); Aspartate Aminotrans (AST/SGOT 51 U/L (12-37); Bilirubin, Total 0.4 mg/dL (0.1-1.0); Blood Urea Nitrogen 13 mg/dL (8-24); Bun/Creatinine Ratio 25.1 (12.0-20.0); CO2, Blood 25 mmol/L (21-32); Calcium, Blood 8.9 mg/dL (8.5-10.1); Chloride, Blood 104 mmol/L (98-108); Creatinine, Blood 0.52 mg/dL (0.40-1.00); Globulin, Blood 4.1 g/dL (2.2-4.0); Glomerular Filtration Rate >60 (60-); Glucose, Blood 180 mg/dL (70-99); Potassium, Blood 4.5 mmol/L (3.5-5.5); Sodium, Blood 137 mmol/L (136-145); Total Protein, Blood 6.8 g/dL (6.4-8.2)
[2020-05-11 18:13] LABS: PCO2 Arterial 31.9 mmHg (35-45); PO2 Arterial 64.1 mmHg (80-100)
--- NOTE | 2020-05-11 22:24 | NUR ---
ADMIT NOTE PT ARRIVED @ 2112 [facility] [employer] FROM THE ER. TX TO ICU BED WITH MINIMAL ASSISTANCE. PT BECOMES SOB QUICKLY UPON EXERTION. PT A&OX4. ON 9LPM O2 VIA [place] NC c O2 SATS >90%. FINE CRACKLES T/O LUNG ESTEVEZ. OCCASIONAL COUGH, WILL ATTEMPT TO COLLECT A SPUTUM SAMPLE. MRSA NASAL SWAB COLLECTED AND SENT TO THE LAB. NSR IN THE 70'S ON THE EMPLOYEE RELATION MANAGER. BP STABLE. AFEBRILE. 20 GA IV LOC L WRIST. WILL CONTINUE TO MONITOR.
--- NOTE | 2020-05-12 05:36 | NUR ---
SHIFT SUMMARY NO CHANGES IN NEURO STATUS. OXYMIZER INCREASED TO 15LPM WHILE SLEEPING DUE TO O2 SATS DROPPING TO THE HIGH 80'S. NASAL PRONGS ALSO MOVED TO MOUTH PT IS A MOUTH BREATHER WHILE SLEEPING. PT ASSISTED TO BEDSIDE COMMODE AROUND 0400, UNABLE TO URINATE AT THAT TIME. BECAME APNEIC WITH MINIMAL EXERTION, O2 SATS DROPPED TO HIGH 80'S ON 15LPM 02 VIA OXYMIZER. ONCE BACK IN BED, PT TOOK ABOUT 3-5 MINS TO CATCH HER BREATH WITH COACHING. LS REMAIN DIMINISHED WITH CRACKLES. PULMONARY CONSULT IN THE AM.
--- NOTE | 2020-05-12 12:30 | NUR ---
REASSESMENT O2 HAS BEEN DECREASED TO 10L OXYMIZER AND PT MAINTAINS SPO2 >92% AT REST. PT DOES DROP SPO2 WITH ACTIVITY TO LOW 80'S, BUT RECOVERS AFTER RESTING WITH CURRENTLY NO NEED TO INCREASE O2 FOR RECOVERY. BILATERAL LUNGS NOTED TO HAVE FINE CRACKLES IN BASES. PT WAS ABLE TO VOID THIS MORNING AND HAD ADEQUATE OUTPUT. VITALS HAVE REMAINED STABLE, MONITOR CONTINUES TO SHOW PT IN SINUS RHYTHM.
--- NOTE | 2020-05-12 17:54 | NUR ---
SHIFT SUMMARY PT IS ALERT AND ORIENTEDx4, VERY PLEASANT TO WORK WITH. INITIALLY PT WAS ON 15L OF O2 VIA OXYMIZER. SLOWLY WEANED PT DOWN ON O2, WITH LOWEST ATTEMPT OF 8L OXYMIZER. PT WASN'T ABLE TO MAINTAIN HER SPO2 AND WAS TURNED UP TO 9L. PT REPORTS THAT HER COUGH IS "MUCH IMPROVED", DRY AND NON-PRODUCTIVE. PT HAS BEEN SBA TO USE BSC AND WILL DROP HER SPO2 WITH ACTIVITY AND SLOWLY IMPROVE WITH REST, OCCASSIONALY HAD TO TEMPORY INCREASE O2, ALLOW PT TO RECOVER AND RETURN O2 BACK TO PREVIOUS LEVEL. VITALS HAVE BEEN STABLE, MONITOR SHOWS PT TO BE IN NSR.
--- NOTE | 2020-05-12 20:00 | NUR ---
ASSUMPTION OF CARE PT AWAKE IN BED, ORIENTED x4, ON 10L PER OXYMIZER TO MAINTAIN O2 SATURATIONS> 88%, MONITOR SHOWS SINUS RHYTHM WITH HR 60'S-70'S, BP STABLE. PT REPORTS SOB ONLY WITH EXERTION, INCENTIVE SPIROMETER AT BEDSITE, PT UNDERSTANGS USE. DENIES ANY GI/ ISSUES. PT SBA TO BSC, CALL LIGHT WITHIN REACH, PT USING APPROPRIATELY.
--- NOTE | 2020-05-13 01:30 | NUR ---
INCREASED OXYGEN NEEDS PT MAINTAINING O2 SATURATIONS 80-85% ON 15L PER OXYMIZER, SAT PT UP IN FOWLERS POSITION, NO IMPROVEMENT, PT DECLINED PRONING AT THIS TIME. NEW ORDER FOR AIRVO, NOTIFIED CECILIA JOHNSTON, PT PLACED ON AIRVO 50L 83% FIO2.
--- NOTE | 2020-05-13 06:56 | NUR ---
SHIFT SUMMARY PT RESTED WELL THIS SHIFT, REMAINS AROUSABLE AND ORIENTED x4, PT ON AIRVO 50L AND FIO2 TITRATED TO 94%, MONITOR SHOWS SINUS RHYTHM WITH HR 70'S, PT HYPERTENSIVE WITH SBP 150'S-160'S. PT SBA TO BSC, TOLERATED WELL THIS SHIFT. CALL LIGHT WITHIN REACH, PT USES APPROPRIATELY.
--- NOTE | 2020-05-13 10:56 | NUR ---
ASSUMED CARE THIS AM AT 0700. AT BEDSIDE AT 0730. PT SLIGHTLY ANXIOUS ABOUT PROGNOSIS BUT FELT IN BETTER SPIRITS AFTER HAIRPIECE STYLIST. PT DOES HAS SOME DYSPNEA W EXERTION BUT SATS >90%. PT INITIALLY ON AIRVO 50L/94%. PT TITRATED DOWN TO 50L/50% AFTER BEDBATH. PT OOB TO CHAIR TOLERATING WELL. PT ABLE TOLERATE BREAKFAST. PT'S MAIN COPMPLAINT IS SOB W EXERTION AND A HEADACHE. FINE CRACKLES APPRECIATED TO BILAY LOWER LOBES. SATS TO REMAIN AROUND 88%-90% PER DR SOLIS. DR SOLIS AT BEDSIDE NOW EVALUATING PT. PT'S DAUGHTER KARLENE GIVEN UPDATE VIA PHONE W PT'S PERMISSION.
--- NOTE | 2020-05-13 12:21 | NUR ---
PT AGITATED AGAIN, PACING IN ROOM, WALKING OUT OF ROOM, MAKING DEMANDS. PT APPEARS PARANOID AND MAKING ACCUSATIONS THAT SHE IS BEING LIED TO BY STAFF. PT W RAPID AND PRESSURED SPEECH. PT REQUESTING THAT WE NOTE THAT SHE NEVER AGREED TO BE PLACED ON A HOLD. THE HOLD PROCESS WAS EXPLAINED TO PT BUT SHE IS NOT RECEPTIVE TO INFORMATION AT THIS TIME. PT REQUESTING SOMETHING FOR HER NICOTINE ADDICTION, NORCO, AND HER HYSCYAMINE. PT IS DEMANDING MID DAY PILLS FOR HER "BIPOLAR". PT'S RX GLASSES GIVEN TO HER.
--- NOTE | 2020-05-13 12:39 | NUR ---
PT ASSITED TO BEDSIDE COMMODE TO VOID. PT W DYSPNEA W EXERTION. SATS DROPPED TO 70%. 02 INCREASED TO 50L/80% THEN DOWN TO 60% AFTER ABOUT 5 MIN; IT TOOK PT ABOUT FIVE MIN TO RECOVER SATS BACK TO 88%-90%. SATS NOW STABLE AT 90-95%. PT EATING LUNCH. DR SOLIS GIVEN A FULL UPDATE.
--- NOTE | 2020-05-13 16:27 | NUR ---
PT RESTING IN BED WATCHING TV. AIRVO REMAINS AT 50L/60%, SATS 88-94%. PT STATES SHE FEELS MUCH BETTER THAN THIS AM. PT IS NOW ICU STATUS. PT DENIES C/O PAIN INCLUDING HEADACHE SHE HAD.
[2020-05-13 21:32] LABS: Creatinine, Blood 0.55 mg/dL (0.40-1.00); Vancomycin, Trough 5.4 ug/mL (5.0-10.0)
--- NOTE | 2020-05-13 22:00 | NUR ---
ASSUMPTION OF CARE PT ALERT AND ORIENTED x4, AIRVO @ 50L AND FIO2 59% TO MAINTAIN O2 SATURATIONS> 90%, MONITOR SHOWS SINUS RHYTHM, HR 60'S, PT HYPERTENSIVE. TEMPERATURE OF 100.1, PT REPORTS FEELING HOT, ROOM TEMPERATURE AT LOWEST SETTING, FAN AT BEDSIDE, ICE PACKS PROVIDED. PT DENIES GI/ ISSUES AT THIS TIME. PT REPOSITIONS SELF IN BED, CALL LIGHT WITHIN REACH, PT USING APPROPRIATELY.
[2020-05-14 03:48] LABS: BASOPHILS ABSOLUTE AUTO 0.02 K/mm3 (0.00-0.23); BASOPHILS PERCENT AUTO 0 % (0-2); EOSINOPHILS ABSOLUTE AUTO 0.01 K/mm3 (0.00-0.68); EOSINOPHILS PERCENT AUTO 0 % (0-6); Hematocrit 40.2 % (33.0-51.0); Hemoglobin 13.3 g/dL (11.5-16.0); IMMATURE GRAN ABSOLUTE AUTO 0.11 K/mm3 (0.00-0.10); IMMATURE GRAN PERCENT AUTO 1 % (0-1); LYMPHOCYTES ABSOLUTE AUTO 1.25 K/mm3 (0.84-5.20); LYMPHOCYTES PERCENT AUTO 7 % (21-46); MONOCYTES ABSOLUTE AUTO 1.05 K/mm3 (0.16-1.47); MONOCYTES PERCENT AUTO 6 % (4-13); Mean Corpuscular HGB 29.8 pg (26.0-34.0); Mean Corpuscular HGB Conc 33.1 g/dL (31.5-36.5); Mean Corpuscular Volume 90 fL (80-100); Mean Platelet Volume 9.4 fL (9.1-12.4); NEUTROPHILS ABSOLUTE AUTO 14.74 K/mm3 (1.96-9.15); NEUTROPHILS PERCENT AUTO 86 % (41-73); Platelet Count 472 K/mm3 (150-400); RDW Coefficient Variation 13.6 % (11.7-14.2); Red Blood Cell Count 4.46 M/mm3 (3.80-5.20); White Blood Cell Count 17.18 K/mm3 (4.00-11.30)
[2020-05-14 04:08] LABS: Alanine Aminotransfer (ALT/SGP 98 U/L (12-78); Albumin, Blood 2.5 g/dL (3.4-5.0); Albumin/Globulin Ratio 0.6 (0.8-1.8); Alk Phos 107 U/L (50-136); Anion Gap 7 mmol/L (6-16); Aspartate Aminotrans (AST/SGOT 42 U/L (12-37); Bilirubin, Total 0.4 mg/dL (0.1-1.0); Blood Urea Nitrogen 14 mg/dL (8-24); Bun/Creatinine Ratio 25.4 (12.0-20.0); CO2, Blood 27 mmol/L (21-32); Calcium, Blood 8.7 mg/dL (8.5-10.1); Chloride, Blood 105 mmol/L (98-108); Creatinine, Blood 0.55 mg/dL (0.40-1.00); Globulin, Blood 3.9 g/dL (2.2-4.0); Glomerular Filtration Rate >60 (60-); Glucose, Blood 115 mg/dL (70-99); Potassium, Blood 3.4 mmol/L (3.5-5.5); Sodium, Blood 139 mmol/L (136-145); Total Protein, Blood 6.4 g/dL (6.4-8.2)
--- NOTE | 2020-05-14 06:36 | NUR ---
SHIFT SUMMARY PT RESTED T/O SHIFT, AROUSES TO VERBAL STIMULI, REMAINS ORIENTED x4, PT ON AIRVO 50L FIOW 74% TO MAINTAIN O2>90%, O2 SATURATIONS CONTINUE TO DECREASE SIGNIFICANTLY WITH ACTIVITY, RECOVERS WELL WITH REST. PT HYPERTENSIVE THIS SHIFT, NEW ORDER FOR LABETALOL IV, NOT ADMINISTERED THIS SHIFT. NO GI/ ISSUES THIS SHIFT. CALL LIGHT WITHIN REACH, PT USES APPROPRIATELY.
--- NOTE | 2020-05-14 08:15 | NUR ---
AM NOTE ASSUMED CARE OF PT APROX 0700, PT IS A&Ox4 AND SBA IN THE ROOM. PT WAS ON AIRVO 50L AT 73%FIO2 WITH O2 STATS >90% PT'S O2 SATS DROPPED SLIGHTLY WITH TRANSFER TO THE C TO VOID SHE RECOVERED QUICKLY. PT'S OTHER VS STABLE. L/S CLEAR IN THE UPPER LOBES FINE CRACKLES NOTED IN THE BASES. BT PRESENT AND HYPOACTIVE ABD IS SOFT AND NONTENDER TO PALP. NO EDEMA NOTED ON ASSESSMENT. PT REQUESTING TO GET UP AND SIT IN THE CHAIR FOR BREAKFAST PT HAS BEEN IN NSR IN THE 60'S-70'S. PT HAS BEEN AFEBRILE. PT HAS ALSO BEEN USING HER I.S. AND FLUTTER VALVE INDEPENDENTLY. CALL LIGHT IN REACH WILL CONTINUE TO MONITOR
--- NOTE | 2020-05-14 17:45 | NUR ---
SHIFT SUMMARY... NO ACUTE NEGATIVE CHANGES NOTED THIS SHIFT. PT HAS BEEN TITRATED ON THE AIRVO TO 45L AND 60% FIO2 PT'S WITH PT'S O2 SATS >90% PT'S VS HAVE BEEN STABLE T/O SHIFT. PT REFUSED TO HAVE HER BP TAKEN FROM 0800 TO 1500 SHE SAID SHE JUST WANTED TO SLEEP AND THE BP CUFF HURT HER ARM. PT HAS GOTTEN UP TO THE CHAIR FOR EACH MEAL THIS SHIFT. PT DOES WELL WITH TRANSFERS TO THE BSC, RECLINER CHAIR AND BED. PT STATED THAT SHE HAS NOT HAD A BM SINCE ADMIT, BOWEL CARE OBTAINED AND WILL START TONIGHT. CALL LIGHT IN REACH WILL CONTINUE TO MONITOR UNTIL REPORT IS GIVEN TO ONCOMING RN.
--- NOTE | 2020-05-14 23:46 | NUR ---
CARE ASSUMED 1900 PT RESTING IN BED ON AIRVIO AT 45 L, FIO2 69%, SPO2 92%. PT A/O TO SURROUNDS, DATE/TIME, EVENT, AND ABLE TO FOLLOW DIRECTIONS. PT ABLE TO CHANGE POSITIONS IN BED ON HER OWN. LUNG SOUNDS DIMINISHED T/O. PT APPEARS ANXIOUS AT TIMES, ASKING QUESTIONS ABOUT CT SCAN RESULTS AND IF I HAVE SEEN PTS RECOVER WITH COVID. SAT WITH PT TO DISCUSS FEELINGS FURTHER AND EXPLAINED THAT EVERY PT IS DIFFERENT BUT WE ARE HERE TO HELP HER. LOWER EXTREMS COOL TO TOUCH, PT RECIEVED WARM BLANKETS. PT STATES SHE HAS NOT BEEN ABLE TO SLEEP AND WOULD LIKE TO GET SOME REST TONIGHT. PT APPEARS BOTHERED AND FRUSTRATED WITH NURSING CARE/MEDICAL EQUIPMENT (BP CUFF, CARDIAC MONITORING LINES, AND PULSE OX). DISCUSSED ICU CARE WITH PT AND PT AGREES TO ALLOW Q4 REASSESSMENT/BP/CONTINUES CARDIAC/OXYGEN MONITOR BUT OTHERWISE, WOULD LIKE TO BE LEFT ALONE TO SLEEP. CALL LIGHT WITHIN REACH AND PT STATES SHE KNOWS HOW TO USE IT. WILL CONTINUES TO MONTIOR.
--- NOTE | 2020-05-15 01:49 | NUR ---
UPDATE - HYPERTENSION DURING MIDNIGHT ASSESSMENT PTS BP INCREASED TO 180/79, PULSE 93, SPO2 92 ON 45 L OF AIRVO WITH FIO2 68%. PT RECIEVED 10 MG (2ML) PUSH OF LABETALOL WITH GOOD EFFECT, BP 139/72, HR 66, SPO2 94. PT TO [facility], PT QUICKLY STARTED TO DESTAT (SPO2 70'S), AIRVO FIO2 INCREASED TO 95%. AFTER RETURNING TO BED PT SLOWLY RECOVERED AND SPO2 RETURNED TO 93%. AIRVO DECREASED FIO2 68%. PT DID NOT APPEAR TO HAVE SOB DURING EVENT AND REPORTS NO PAIN. PT STATES SHE WILL LIKE TO SLEEP AND DOES NOT WANT TO HAVE BP ON WRIST. WILL CONTINUE TO MONITOR.
[2020-05-15 06:11] LABS: Anion Gap 9 mmol/L (6-16); Blood Urea Nitrogen 15 mg/dL (8-24); Bun/Creatinine Ratio 26.9 (12.0-20.0); CO2, Blood 24 mmol/L (21-32); Calcium, Blood 8.7 mg/dL (8.5-10.1); Chloride, Blood 105 mmol/L (98-108); Creatinine, Blood 0.56 mg/dL (0.40-1.00); Glomerular Filtration Rate >60 (60-); Glucose, Blood 81 mg/dL (70-99); Magnesium, Blood 1.9 mg/dL (1.6-2.4); Phosphorus, Blood 3.5 mg/dL (2.5-4.9); Potassium, Blood 4.2 mmol/L (3.5-5.5); Sodium, Blood 138 mmol/L (136-145)
--- NOTE | 2020-05-15 06:26 | NUR ---
SHIFT SUMMARY PT CONTINUES TO BE ON AIRVO, FIO2 68% WITH 45 L, SPO2 > 92%. PT WAS ABLE TO REST T/O THE SHIFT AND REQUIRED ATTENTION ONLY DURING SHIFT ASSESSMENTS. PER PTS REQUEST NURSING CARE WAS NOT PROVIDED HOURLY, INSTEAD ONLY DURING ASSESSMENTS. PT WAS THANKFUL FOR GETTING SOME REST. VSS T/O SHIFT. BP ONLY TAKEN DURING ASSESSMENTS PER PTS REQUESTS. PTS BP REMAINED SBP < 150 AFTER RECEIVING DOSE OF LABETALOL (SEE LAST UPDATE). NO SIGNIFICANT CHANGES T/O SHIFT. PT CONTINUES TO DESTAT DURING ACTIVITY (WHEN UP TO BSC).
[2020-05-15 07:01] LABS: BASOPHILS ABSOLUTE AUTO 0.01 K/mm3 (0.00-0.23); BASOPHILS PERCENT AUTO 0 % (0-2); EOSINOPHILS PERCENT AUTO 0 % (0-6); Hematocrit 37.8 % (33.0-51.0); Hemoglobin 12.7 g/dL (11.5-16.0); IMMATURE GRAN ABSOLUTE AUTO 0.09 K/mm3 (0.00-0.10); IMMATURE GRAN PERCENT AUTO 1 % (0-1); LYMPHOCYTES ABSOLUTE AUTO 0.57 K/mm3 (0.84-5.20); LYMPHOCYTES PERCENT AUTO 4 % (21-46); MONOCYTES ABSOLUTE AUTO 0.78 K/mm3 (0.16-1.47); MONOCYTES PERCENT AUTO 6 % (4-13); Mean Corpuscular HGB 30.4 pg (26.0-34.0); Mean Corpuscular HGB Conc 33.6 g/dL (31.5-36.5); Mean Corpuscular Volume 90 fL (80-100); Mean Platelet Volume 9.2 fL (9.1-12.4); NEUTROPHILS ABSOLUTE AUTO 11.88 K/mm3 (1.96-9.15); NEUTROPHILS PERCENT AUTO 89 % (41-73); Platelet Count 352 K/mm3 (150-400); RDW Coefficient Variation 13.6 % (11.7-14.2); RDW Standard Deviation 45.1 fL (35.1-46.3); Red Blood Cell Count 4.18 M/mm3 (3.80-5.20); White Blood Cell Count 13.33 K/mm3 (4.00-11.30)
[2020-05-15 07:19] LABS: Anion Gap 9 mmol/L (6-16); Blood Urea Nitrogen 16 mg/dL (8-24); Bun/Creatinine Ratio 27.8 (12.0-20.0); CO2, Blood 26 mmol/L (21-32); Calcium, Blood 8.9 mg/dL (8.5-10.1); Chloride, Blood 106 mmol/L (98-108); Creatinine, Blood 0.58 mg/dL (0.40-1.00); Glomerular Filtration Rate >60 (60-); Glucose, Blood 85 mg/dL (70-99); Potassium, Blood 3.8 mmol/L (3.5-5.5); Sodium, Blood 141 mmol/L (136-145)
--- NOTE | 2020-05-15 11:09 | NUR ---
PT IS DENYING CURRENT DISTRESS, HOWEVER PT MOD SOB WITH EXERTION OF GETTING OOB. PT IS VERY AWARE OF STATUS AND WILLING TO COMMUNICATE WISHES. PT AIRVO SETTINGS ARE NOTED.
--- NOTE | 2020-05-15 11:25 | NUR ---
1015 PT HAS BEEN OB TO CHAIR AND NOW RETURNING TO BED BY WAY OF BSC. PT SATS DOWN TO LOW 70 RANGE AND SLOW TO RECOVER. RR UPPER 34-40 RANGE.
--- NOTE | 2020-05-15 22:52 | NUR ---
CARE ASSUMED 1900 PT RESTING IN CHAIR AND WATCHING TV. AIRVIO AT 45 L WITH FIO2 AT 63%, SPO2 >92%. PT STATES SHE IS "FEELING BETTER". PT REQUIRES A STANDBY ASSIST UP TO BEDSIDE CAMMDO FROM CHAIR BUT QUICKLY DESTATS TO SPO2 77 %, DEINES CP AND SOB. SLOW RECOVERY WHEN RETURNING TO BED. PT HAD MEDIUM BM AND RETURNED BACK TO BED. PT A/O X 4. PT WOULD LIKE TO SLEEP. POWERGLIDE IN PLACE, FLUSHED AND RETURNING BLOOD WELL. CALL LIGHT WITHIN REACH.
[2020-05-16 04:33] LABS: BASOPHILS ABSOLUTE AUTO 0.01 K/mm3 (0.00-0.23); BASOPHILS PERCENT AUTO 0 % (0-2); EOSINOPHILS ABSOLUTE AUTO 0.05 K/mm3 (0.00-0.68); EOSINOPHILS PERCENT AUTO 0 % (0-6); Hematocrit 38.8 % (33.0-51.0); IMMATURE GRAN ABSOLUTE AUTO 0.11 K/mm3 (0.00-0.10); IMMATURE GRAN PERCENT AUTO 1 % (0-1); LYMPHOCYTES ABSOLUTE AUTO 0.58 K/mm3 (0.84-5.20); LYMPHOCYTES PERCENT AUTO 4 % (21-46); MONOCYTES ABSOLUTE AUTO 0.79 K/mm3 (0.16-1.47); MONOCYTES PERCENT AUTO 6 % (4-13); Mean Corpuscular HGB 30.1 pg (26.0-34.0); Mean Corpuscular HGB Conc 33.5 g/dL (31.5-36.5); Mean Corpuscular Volume 90 fL (80-100); NEUTROPHILS ABSOLUTE AUTO 12.46 K/mm3 (1.96-9.15); NEUTROPHILS PERCENT AUTO 89 % (41-73); Platelet Count 351 K/mm3 (150-400); RDW Coefficient Variation 13.5 % (11.7-14.2); RDW Standard Deviation 44.4 fL (35.1-46.3); Red Blood Cell Count 4.32 M/mm3 (3.80-5.20)
[2020-05-16 04:48] LABS: Anion Gap 6 mmol/L (6-16); Blood Urea Nitrogen 15 mg/dL (8-24); Bun/Creatinine Ratio 30.7 (12.0-20.0); CO2, Blood 27 mmol/L (21-32); Calcium, Blood 8.5 mg/dL (8.5-10.1); Chloride, Blood 105 mmol/L (98-108); Creatinine, Blood 0.49 mg/dL (0.40-1.00); Glomerular Filtration Rate >60 (60-); Glucose, Blood 96 mg/dL (70-99); Potassium, Blood 4.1 mmol/L (3.5-5.5); Sodium, Blood 138 mmol/L (136-145)
[2020-05-16 05:05] LABS: PCO2 Arterial 28.7 mmHg (35-45); PO2 Arterial 74.1 mmHg (80-100); pH Blood Arterial 7.56 (7.35-7.45)
--- NOTE | 2020-05-16 06:11 | NUR ---
SHIFT SUMMARY PT SLEEPING T/O SHIFT. DURING 4 AM ASSESSMENT PT UP TO BEDSIDE BSC WITH STANDBY ASSIST. PT QUICKLY DESATURATED, SPO2 67%. PT DENIES CP BUT STATES HAVING SOB. PT MOVED BACK TO BED, FIO2 INCREASED TO 95% ON AIRVO WITH 45 L. PT RECOVERED SHORTLY AFTER. RT CALLED IN TO SEE PT DUE TO SPO2 DECREASING (83-85%) WHILE PT MOVING TO SIT-UP IN BED TO WATCH TV. AIRVO SETTINGS CHANGED TO 55 L AND FIO2 OF 78%, SPO2 96%. PT STATES HAVING A HEADACHE, TREATED PER EMAR. AT END OF SHIFT PT SITTING IN BED WATCHING TV. CALL LIGHT WILL IN REACH. WILL REPORT TO ONCOMING SHIFT. VSS.
--- NOTE | 2020-05-16 09:52 | NUR ---
SUBJECTIVELY PT WOB IS LESS AND MORE RELAXED THIS AM DISPTITE INC SETTINGS OF O2 NEEDS. PT UP TO CHAIR AND HR ONLY UP 15-20 POINTS AND LESS DESAT ONLY DOWN TO 85 RANGE AND RECOVERED MORE QUICKLY.
--- NOTE | 2020-05-16 13:17 | NUR ---
PT HAS BEEN UP IN CHAIR SENCE B-FAST AND TOLERATING WELL. PT REMAINS MOTIVATED TO IMPROVE AND USING I.S. AND FLUTTER VALVE WELL. PT CONT. TO APPEAR LIKE SHE IS LESS SOB AND DOES RECOVER BETTER TODAY ON EXERTION. WILL FOLLOW.
--- NOTE | 2020-05-16 17:23 | NUR ---
PT REMAINS VERY A/O AND O2 STAUTS UNCHANGED THIS DAY. HOWEVER, PT CONT TO HAVE LESS WOB DISTRESS AND HAS BEEN UP IN THE CHAIR ALL DAY AND CONTINUES TO WORK ON FLUTTER AND I.S. VALVE. PT DENIES PAIN OR OTHER DISTRESS. PT IS EATING WELL HAND HAS VOIDED. REMAINS SR WITH VSS.
--- NOTE | 2020-05-16 20:32 | NUR ---
ASSUMED CARE: PT A&O. AWAKE IN BED. PLEASANT AND COOPERATIVE WITH CARE. AFEBRILE. IN SR. HR IN THE 60S. SBP IN THE 140S. LUNG SOUNDS CLEAR, DIM IN BASES. ON AIRVO. SPO2 >90%. ON 55L AND FIO2 78%. TOLERATING WELL. BT X 4. PT IS ABLE TO TAKE PO MEDS WELL. VOIDS AND IS UP TO TOILET WITH A STANDBY ASSIST. PG TO LISSETTE THAT IS SL. BED IS IN LOWEST POSITION, CALL LIGHT IN REACH. SPOKE WITH PT REGARDING CARE TONIGHT AND PLAN IS TO LET HER REST MUCH POSSIBLE. SHE IS AGREEABLE AND THANKFUL FOR THAT. WILL CONTINUE TO MONITOR.
[2020-05-17 04:22] LABS: Anion Gap 8 mmol/L (6-16); Blood Urea Nitrogen 14 mg/dL (8-24); Bun/Creatinine Ratio 30.1 (12.0-20.0); CO2, Blood 23 mmol/L (21-32); Calcium, Blood 8.4 mg/dL (8.5-10.1); Chloride, Blood 104 mmol/L (98-108); Creatinine, Blood 0.47 mg/dL (0.40-1.00); Glomerular Filtration Rate >60 (60-); Glucose, Blood 151 mg/dL (70-99); Potassium, Blood 3.8 mmol/L (3.5-5.5); Sodium, Blood 135 mmol/L (136-145)
--- NOTE | 2020-05-17 04:54 | NUR ---
PT UP TO COMMODE. PT BECOMES SOB AND DYSPNEIC WITH ACTIVITY, DESATS INTO THE 60S. TAKES AWHILE FOR HER TO RECOVER. UP TO 55L ON AIRVO. PT COACHED ON TAKING SLOW DEEP BREATHS. CURRENTLY SPO2 97%.
--- NOTE | 2020-05-17 05:54 | NUR ---
SHIFT SUMMARY: NO ACUTE CHANGES SINCE LAST NOTE. PT DID COMPLAIN OF SLIGHT HEADACHE THIS AM. TYLENOL GIVEN WITH GOOD EFFECT. WILL PASS REPORT TO ONCOMING SHIFT
--- NOTE | 2020-05-17 08:45 | NUR ---
ASSUMED CARE REPORT RECIEVED. UPON ENTERING THE ROOM, PT IS AWAKE, ALERT, AND ORIENTED. PT IN PRONE POSITION FROM RT ASSISTANCE. PT STATES PRONING IS UNCOMFORTABLE. PT POSITIONED BACK TO SUPINE FOR MEDS AND BREAKFAST. PT ON AIRVO AT 55L, FIO2 72%. PT WITH DYSPNEA WITH ANY MOVEMENT/EXERTION. VITAL SIGNS STABLE. POWERGLIDE TO LISSETTE C/D/I, SALINE LOCKED. PT EXPRESSES FRUSTRATIONS WITH CURRENT ILLNESS AND WANTING TO GET OUT OF THE HOSPITAL. THERAPUTIC REASSURANCE GIVEN AND DISCUSSED PLAN OF CARE WITH PT. PT SITTING UP EATING BREAKFAST AT THIS TIME. WILL CONTINUE TO MONITOR.
--- NOTE | 2020-05-17 18:09 | NUR ---
SHIFT SUMMARY NO ACUTE CHANGES THIS SHIFT. PT REMAINED ON AIRVO THROUGHOUT THE SHIFT. CURRENT SETTINGS 60L, FIO2 72%. PT REMAINS ALERT AND ORIENTED. PT COMPLAINS OF FATIGUE AND BEING TIRED OF BEING IN THE HOSPITAL. PT COMPLAINS OF SOB WITH ANY ACTIVITY. PT UP TO BSC TO VOID. ATTENDS IN PLACE. PT WITH DROP IN SPO2 TO 70'S WITH ACTIVITY, WITH LONG RECOVERY TIME. POWERGLIDE TO LISSETTE C/D/I, SALINE LOCKED. PT WITH POOR APPETITE THROUGHOUT THE DAY. WILL CONTINUE TO MONITOR AND REPORT OFF TO ONCOMING RN.
--- NOTE | 2020-05-17 20:00 | NUR ---
ASSUMED CARE: PT A&O. STAYED IN BED MOST OF THE DAY. REQUIRED MORE O2 TODAY. AIRVO AT 70-80& AND 60L TO MAINTAIN SPO2 >90%. CRACKLES STILL PRESENT AT BASES. SPOKE WITH PT ABOUT A PLAN FOR THE NIGHT. SHE STATED SHE HAD HOPED TO GET INTO THE CHAIR DURING THE DAY BUT FELT TO TIRED. OFFERED TO GET HER UP TO CHAIR IN THE EVENING AND SHE WAS AGREEABLE TO THAT. PCT ANTONIO GOT PT UP TO CHAIR. SHE HAD A BRIEF MOMENT OF DESATTING BUT WAS ABLE TO RECOVER AND MAINTAIN SATS AT 94%. SHE FEELS A LITTLE DEPRESSED, BELIEVING THAT SHE IS GOING TO . TRIED TO REASSURE HER THAT HER RECOVERY MAY TAKE TIME AND HER ABILITY TO GET OUT OF BED AND INTO THE CHAIR WAS A POSITIVE SIGN. OFFERED TO GATHER BOOKS OR MAGAZINES. ASKED IF SHE WOULD LIKE A VISIT FROM SPIRITUAL CARE. SHE STATED MAGAZINES WOULD BE NICE. DECLINED VISIT FROM SPIRITUAL CARE. PT WAS ABLE TO GET OUT OF CHAIR AND USE COMMODE THEN GO BACK TO BED WITH MINIMAL DESAT. GOAL FOR THE NIGHT IS FOR PT TO REST MUCH POSSIBLE. SHE IS AGREEABLE TO THAT. WILL CONTINUE TO MONITOR
[2020-05-18 05:20] LABS: PCO2 Arterial 33.1 mmHg (35-45); pH Blood Arterial 7.49 (7.35-7.45)
[2020-05-18 05:21] LABS: PO2 Arterial 48.7 mmHg (80-100)
--- NOTE | 2020-05-18 06:01 | NUR ---
SPOKE WITH DR GUERRERO RE PT CRITICALLY LOW PO2 OF 48.7 THIS AM. PT IS DNR/DNI. CESAR AWARE OF PTS INCREASED O2 NEEDS (FIO2 90%). NO CHANGES TO ORDERS. KEEP PT ON AIRVO AT CURRENT SETTINGS.
--- NOTE | 2020-05-18 06:04 | NUR ---
SHIFT SUMMARY: PT WAS ABLE TO REST MAJORITY OF NIGHT. SHE DID REQUIRE AN INCREASE IN FIO2 WHILE SLEEPING D/T DESATS. CURRENTLY ON 60L AND 90% FIO2. PT DOES NOT APPEAR TO BE IN ANY DISTRESS AT THIS TIME. WILL PASS REPORT TO ONCOMING SHIFT
[2020-05-18 06:24] LABS: Anion Gap 11 mmol/L (6-16); Blood Urea Nitrogen 17 mg/dL (8-24); Bun/Creatinine Ratio 37.4 (12.0-20.0); CO2, Blood 22 mmol/L (21-32); Calcium, Blood 9.2 mg/dL (8.5-10.1); Chloride, Blood 101 mmol/L (98-108); Creatinine, Blood 0.46 mg/dL (0.40-1.00); Glomerular Filtration Rate >60 (60-); Glucose, Blood 132 mg/dL (70-99); Magnesium, Blood 1.8 mg/dL (1.6-2.4); Potassium, Blood 3.6 mmol/L (3.5-5.5); Sodium, Blood 134 mmol/L (136-145)
--- NOTE | 2020-05-18 08:00 | NUR ---
ASSUMED CARE REPORT RECIEVED. UPON ENTERING ROOM PT IS AWAKE, ALERT, AND ORIENTED. PT IS COMPLAINING OF HEADACHE. PT MED WITH TYLENOL PER EMAR. PT ON AIRVO 60L, FIO2 88%. PT SPO2 91% AT REST. PT SPO2 DROPS TO LOW 80'S WITH MINIMAL EXERTION. OTHERWISE VITAL SIGNS STABLE. POWERGLIDE TO LISSETTE C/D/I, SALINE LOCKED. PT WITH ATTENDS IN PLACE. WILL CONTINUE TO MONITOR.
--- NOTE | 2020-05-18 10:47 | NUR ---
Initial [facility] Care referral. - We have been following pt from a distance with daily checkins with pt's nurses. Received call with request that we visit pt today per RN and Sleeve Setter. EMR reviewed and case conferenced with both RN and auto accessories installer prior to my visit. Pt had expressed frustration, fatigue and questions regarding hospice yesterday. Pt's O2 needs have increased via airvo and condition has worsened in past 24 hours. I introduced myself and purpose of my visit to Savita. She was glad for the visit. We reviewed her prior health hx, quality of life, both of which she described as good. She reports being very energetic and active. She does not appear her 80 years. Pt states if she were to start to improve she feels she would have the strength and motivation to complete the long recovery and rehab required to return to her prior level of health. We discussed the options available going forward per her care providers. She is familiar with hospice as a family member of resp failure in the past year. We talked about comfort care/hospice in the hosptial. We discussed options being offered if her respiratory status were to decline further. She is very clear that she does not want to be intubated under any circumstances. Non invasive respiratory support discussed in form of Bipap. She is willing to try the bipap to give her more time to start to improve but would not want to be on it for more than 24 hours. If her condition worsens in the next 24 hours she would like to transition to comfort care. If she is not able to communicate with us as she worsens, she wants us to transition her to comfort care. She has not spoken to her daughter on the phone for a couple of days due to increasing dyspnea. I offered and pt asked if I would update her rima on her condition and our conversation, which I did. I spoke with Deangelo for 20 minutes. She has been calling ICU staff periodically for updates and appreciated the call. She and her mom had many conversations re: advanced care planning even prior to this illness and she is 100% in support of her mom's wishes and plans. She would like to be called with any changes in condition or goals of care. Pt reports she is not hurting or feeling distressed other than, "not being able to breath". Pt appears dyspnic and anxious with her respiratory effort. She is alert and oriented x 4. She denies any needs at this time. She has her cell phone fully charged but turned off on her table and call light was moved closer to her before I left. With pt's permission, I gave her a foot rub before I left and she verbalized appreciation for that. Plan is for [facility] to reassess tomorrow. Pt aware that she can request comfort care at any point she feels she would like to transition her goals and that care givers will keep her apprised of trends regularly so she can make the best decisions for herself.
[2020-05-18 11:40] LABS: Alanine Aminotransfer (ALT/SGP 53 U/L (12-78); Albumin, Blood 2.2 g/dL (3.4-5.0); Albumin/Globulin Ratio 0.5 (0.8-1.8); Alk Phos 100 U/L (50-136); Aspartate Aminotrans (AST/SGOT 25 U/L (12-37); Bilirubin, Direct 0.1 mg/dL (0.0-0.3); Bilirubin, Indirect 0.2 mg/dL (0.1-0.7); Bilirubin, Total 0.3 mg/dL (0.1-1.0); Cholesterol 156 mg/dL (50-200); Globulin, Blood 4.2 g/dL (2.2-4.0); Total Protein, Blood 6.4 g/dL (6.4-8.2); Triglycerides 145 mg/dL (30-160)
--- NOTE | 2020-05-18 17:50 | NUR ---
SHIFT SUMMARY NO ACUTE CHANGES THIS SHIFT. PT HAS REMAINED ALERT AND ORIENTED. PT DAUGHTER IN TO VISIT THIS AFTERNOON. PT SPIRITS IMPROVED AND PT APPEARS TO BE MORE CHEERFUL. PT REMAINS ON AIRVO AT 60L, FIO2 95% AT THIS TIME. PT WITH EPISODES OF DESATTING WITH ANY ACTIVITY. PT IS AGREEABLE TO TRY BIPAP IF NEEDED, BUT REMAINS ON AIRVO AT THIS TIME. VITAL SIGNS STABLE. POWERGLIDE TO LISSETTE C/D/I. PT UP TO CHAIR THIS AFTERNOON AND REQUESTING TO STAY IN BEDSIDE CHAIR AT THIS TIME. WILL CONTINUE TO MONITOR AND REPORT OFF TO ONCOMING RN.
--- NOTE | 2020-05-18 20:00 | NUR ---
ASSUMED CARE: PT AWAKE, IN CHAIR, WATCHING TV. VSS. REMAINS ON AIRVO. CRACKLES AT BASES OF LUNGS. PLAN IS TO LET HER SLEEP/REST MUCH POSSIBLE TONIGHT.
[2020-05-19 03:48] LABS: EOSINOPHILS PERCENT AUTO 0 % (0-6); Hematocrit 37.7 % (33.0-51.0); Hemoglobin 12.9 g/dL (11.5-16.0); IMMATURE GRAN ABSOLUTE AUTO 0.11 K/mm3 (0.00-0.10); IMMATURE GRAN PERCENT AUTO 1 % (0-1); LYMPHOCYTES ABSOLUTE AUTO 0.52 K/mm3 (0.84-5.20); LYMPHOCYTES PERCENT AUTO 6 % (21-46); MONOCYTES ABSOLUTE AUTO 0.54 K/mm3 (0.16-1.47); MONOCYTES PERCENT AUTO 6 % (4-13); Mean Corpuscular HGB 30.4 pg (26.0-34.0); Mean Corpuscular HGB Conc 34.2 g/dL (31.5-36.5); Mean Corpuscular Volume 89 fL (80-100); Mean Platelet Volume 9.3 fL (9.1-12.4); NEUTROPHILS ABSOLUTE AUTO 7.84 K/mm3 (1.96-9.15); NEUTROPHILS PERCENT AUTO 87 % (41-73); Platelet Count 264 K/mm3 (150-400); RDW Coefficient Variation 13.3 % (11.7-14.2); RDW Standard Deviation 43.5 fL (35.1-46.3); Red Blood Cell Count 4.25 M/mm3 (3.80-5.20); White Blood Cell Count 9.04 K/mm3 (4.00-11.30)
[2020-05-19 03:50] LABS: BASOPHILS ABSOLUTE AUTO 0.03 K/mm3 (0.00-0.23); BASOPHILS PERCENT AUTO 0 % (0-2)
[2020-05-19 04:04] LABS: Anion Gap 6 mmol/L (6-16); Blood Urea Nitrogen 19 mg/dL (8-24); Bun/Creatinine Ratio 36.2 (12.0-20.0); CO2, Blood 29 mmol/L (21-32); Calcium, Blood 9.2 mg/dL (8.5-10.1); Chloride, Blood 101 mmol/L (98-108); Creatinine, Blood 0.53 mg/dL (0.40-1.00); Glomerular Filtration Rate >60 (60-); Glucose, Blood 105 mg/dL (70-99); Potassium, Blood 4.6 mmol/L (3.5-5.5); Sodium, Blood 136 mmol/L (136-145)
[2020-05-19 05:14] LABS: PO2 Arterial 60.3 mmHg (80-100); pH Blood Arterial 7.45 (7.35-7.45)
--- NOTE | 2020-05-19 05:54 | NUR ---
SHIFT SUMMARY: NO ACUTE CHANGES. PT SLEPT ALL NIGHT. 1 EPISODES OF DESATTING THIS AM, BUT RECOVERED QUICKLY. VSS. WILL PASS REPORT TO ONCOMING SHIFT
--- NOTE | 2020-05-19 11:03 | NUR ---
AM NOTE... ASSUMED CARE OF PT APROX 0700. PT IS A&Ox4 AND SBA IN THE ROOM. PT IS ON AIRVO AT 60L AND 95%FIO2 WITH O2 SATS 90%-93%. PT'S VS STABLE AT THIS TIME. L/S CLEAR IN THE UPPER LOBES CRACKLES NOTED IN THE BASES, PT BECOMES DYSPNIC WITH ACTIVITY AND RECOVERS SLOWLY. PT HAS TRACE EDEMA TO HER BLE. BT PRESENT AND HYPERACTIVE ABD IS SOFT AND NONTENDER TO PALP. PT SEEMS TO HAVE INCREASED ANXIETY ABOUT MOVEMENT AND GETTING UP OUT OF BED. PROVIDER AT THE BEDSIDE, HER INCREASED ANXIETY WAS BROUGHT UP AND NEW ORDERS OBTAINED FOR PO XANAX. CALL LIGHT IN REACH WILL CONTINUE TO MONITOR.
[2020-05-19 14:57] LABS: Source, Urine Catheter
[2020-05-19 15:01] LABS: Appearance, Urine Clear (Clear); Bilirubin, Urine Neg (Neg); Blood, Urine Neg (Neg); Color, Urine Yellow (P-Yellow); Glucose Qualitative, Urine Neg (Neg); Ketones, Urine Neg (Neg); Leukocyte Esterase, Urine Neg (Neg); Nitrite, Urine Neg (Neg); Protein, Urine Neg (Neg); Specific Gravity, Urine 1.005 (1.003-1.022); Urobilinogen, Urine NORM (Normal)
--- NOTE | 2020-05-19 15:25 | NUR ---
Supportive visit with pt and her daughter. Plan at this point is watch and wait if she declines further they will consider transitioning to hospice.
--- NOTE | 2020-05-19 17:52 | NUR ---
SHIFT SUMMARY... NO ACUTE NEGATIVE CHANGES NOTED THIS SHIFT. PT STARTED SHIFT ON AIRVO AT 620L AND 95% FIO2, PT HAS BEEN TITRATED DOWN TO 60L AND 73% FIO2 WITH O2 SATS>92%. A CHAND WAS PLACED PER D/T INCREASED LASIX DOSE AND LONGER RECOVERY TIMES ONCE THE PT GOT TO THE BSC, PT'S RR INCREASED TO THE 40'S AND HR FROM THE 70'S-80'S TO 100'S-110'S O2 SATS WOULD DROP DOWN TO THE MID 70'S AND WAS SLOW TO COME BACK UP. DURING CHAND PLACEMENT IT WAS NOTED THAT THE PT'S JANIE AREA AND LABIA WERE RED, INFLAMED AND PAINFUL TO TOUCH, PT'S DAUGHTER TOLD THIS RN THAT THE PT GETS "YEAST INFECTIONS AND UTI'S DOWN THERE ALL TIME." DR. KEITH WAS NOTIFIED AND NEW ORDERS OBTAINED FOR NYSTATIN POWDER. PT'S OTHER VS HAVE BEEN STABLE T/O SHIFT. CALL LIGHT IN REACH WILL CONTINUE TO MONITOR UNTIL REPORT IS GIVEN TO ONCOMING RN.
--- NOTE | 2020-05-19 20:10 | NUR ---
ASSUMED PT CARE REPORT FROM LENORE LOPEZ AT 1900, ASSUMED PT CARE AT THAT TIME. PT ALERT AND ORIENTED, ANSWERS QUESTIONS APPROPRIATELY. AWARE OF SITUATION. PT DENIES PAIN/NAUSEA. PT IN AIRVO 60L/80% AT START OF SHIFT, DUE TO SATS <89% INCREASED TO 90%. PT TACHYPNEAIC AT TIMES. HAS MOIST COUGH, LUNG SOUNDS CLEAR TO UPPER ESTEVEZ, CRACKLES HEARD TO LOWER ESTEVEZ. PT NSR ON MONITOR, RATE 70'S. BP WNL. ABD SOFT AND NON TENDER. BOWEL SOUNDS ACTIVE, BS ACTIVE. PT AFEBRILE. POWER GLIDE TO LISSETTE, POSITIONAL, FLUSHES WELL. CALL LIGHT IN REACH. PT MOVES INDEPENDENTLY IN BED. SEE FULL SHIFT ASSESSMENT.
--- NOTE | 2020-05-20 06:13 | NUR ---
SHIFT SUMMARY PT HAD DECENT SHIFT. PT REMAINS ALERT AND ORIENTED AND SOMEWHAT FORGETFUL. PT REMAINS ON AIRVO AT 60L/95%. SATS >90% MOST OF THE TIME. PT DENIES WORSENING OF SYMPTOMS. POWERGLIDE TO RIGHT UPPER ARM, SL, DRESSING C/D/I. PT SR ON MONITOR RATE IN 80S. BP STABLE. PT AFEBRILE. PT HAS CHAND DRAINING CLEAR YELLOW URINE. TOTAL OUTPUT THIS SHIFT 450ML. PT TOLERATES DIET AND IS ABLE TO SWALLOW MEDS WHOLE. PT DENIES PAIN/NAUSEA. ABD SOFT AND NON TENDER. BOWEL SOUNDS ACTIVE. BM 10. SKIN FRAGILE, REDNESS TO GROIN AND ABD. PT ABLE TO MOVE INDEPENDENTLY IN BED. USES CALL LIGHT APPROPRIATELY. CALL LIGHT IN REACH. WILL REPORT TO ONCOMING SHIFT.
--- NOTE | 2020-05-20 09:00 | NUR ---
ASSUMED CARE: REPORT RECEIVED FROM JERSON Marino RN. ASSUMED CARE OF THIS PT AT APPROX 0700. ON ASSESSMENT, THE PT IS RESTING QUIETLY. SHE AWAKENS EASILY TO VERBAL STIMULUS & IS ALERT/ORIENTED AT THAT TIME. FORGETFUL AT TIMES, PER REPORT. LS ARE DIM T/O, PT ON AIRVO W/ SETTINGS 60 L/MIN & 95% FIO2. O2 SATS > 90% ON AVG, DESATS NOTED W/ ACTIVITY. DIFFICULT AT TIMES TO GET ACCURATE PLETH & SPO2 READING. MONITOR SHOWS SR W/ HR 90s, INCREASED TO 110s W/ ANXIETY, BP STABLE. PT HAS NO GI COMPLAINTS, IS TOLERATING PO INTAKE WELL. CHAND IN PLACE DRAINING CLEAR YELLOW URINE, DIURESIS PER EMAR. SKIN OVERALL CDI, FRAGILE W/ SCATTERED BRUISING. WILL CONTINUE TO MONITOR & UPDATE NEEDED.
--- NOTE | 2020-05-20 10:30 | NUR ---
DR KEITH: PROVIDER AT BEDSIDE TO EVAL PT. HE HAS DISCUSSED POC W/ PT & PT's DAUGHTER, KARTHIKEYAN, WHO HAS BEEN AT BEDSIDE THIS MORNING. THE USE OF BIPAP HAS BEEN DISCUSSED & THE PT IS AGREEABLE, W/ INTENT TO ALSO USE PRECEDEX FOR INCREASED ANXIETY. BIPAP ORDERS HAVE BEEN PLACED. WILL INITIATE PRECEDEX & ALLOW PT TO CALM PRIOR TO PLACING BIPAP. JIMENEZ & ADELAIDA, RTs, ARE AWARE OF THIS PLAN. WILL NOTIFY THEM WHEN PT READY TO USE BIPAP.
--- NOTE | 2020-05-20 11:50 | NUR ---
DR TRIPP: PROVIDER AT BEDSIDE TO EVAL PT. NO CHANGES TO CURRENT POC, CONTINUE PER FOREIGN LANGUAGES PROFESSOR.
--- NOTE | 2020-05-20 18:44 | NUR ---
SHIFT SUMMARY: NO ACUTE CHANGES SINCE PRIOR UPDATES. PT REMAINS ON PRECEDEX & IS TOLERATING BIPAP WELL W/ SETTINGS: /6 & 80% FIO2, O2 SATS > 90%. SHE IS RESTING SOUNDLY BUT AWAKENS BRIEFLY TO VERBAL STIMULUS. HR NOW 70s, BP STABLE W/ SBP 100-110s. PT HAS NO GI COMPLAINTS, CHAND PATENT/ DRAINING W/ DIURESIS PER I&O. SKIN OVERALL CDI, PT HESITANT TO BE REPOSITIONED AT TIMES R/T DYSPNEA W/ ACTIVITY & OVERALL INCREASED ANXIETY R/T ILLNESS. WILL CONTINUE TO MONITOR & REPORT OFF TO ONCOMING RN.
--- NOTE | 2020-05-20 20:00 | NUR ---
ASSUMPTION OF CARE RECEIVED HAND OFF FROM Ravi MAY RN USING SBAR. LYING IN SEMI FOWLERS WITH EYES CLOSED. RESPIRATIONS EVEN, RAPID, AND UNLABORED VIA BIPAP SET AT 10/6 WITH FUIO2 AT 80%. LUNG SOUNDS COARSE IN ALL ESTEVEZ, DIMINISHED WITH FINE CRACKLES NOTED IN BASES. ABDOMEN SOFT AND NONDISTENDED. BOWEL SOUNDS NOTED IN ALL QUADS. CHAND CATH DRAINING CLEAR YELOW URINE TO GRAVITY. 20G POWERGLIDE NOTED TO LISSETTE. FLUSHES WITH EASE, BUT IS POSITIONAL FOR DRAWBACK. INFUSING PRECEDEX AT 0.5MCG/HR. STATED THAT SHE WAS THIRSTY. GIVEN ENSURE FOR COMFORT AND NUTRITION. DENIES PAIN, DISCOMFORT, OR FURTHER NEEDS AT THIS TIME. SAFETY MEASURES IN PLACE. WILL CONTINUE TO MONITOR.
--- NOTE | 2020-05-20 22:00 | NUR ---
REPOSITIONED FOR COMFORT. GIVEN SIPS OF WATER, IMMEDIATELY DESATS TO LOW 80'S. IT TAKES HER A WHILE TO RECOVER. NURSING STAYED AT BEDSIDE UNTIL SHE WAS BACK TO 90%. CONTINUES TO DENY PAIN, DISCOMFORTY, OR FURTHER NEEDS AT THIS TIME. SAFETY MEASURES IN PLACE. WILL CONTINUE TO MONITOR.
--- NOTE | 2020-05-21 00:11 | NUR ---
LYING IN SEMI FOWLERS WITH EYES CLOSED. OPENS EYES WHEN NURSING ENTERS ROOM. AAO X3, GERARDO, FOLLOWS ALL COMMANDS. BIPAP REMOVED LONG ENOUGH FOR PT TO BE ABLE TO GET A FEW SIPS OF WATER, TOLERATED WELL. RECOVERY CONTINUES TO TAKE A WHILE. DENIES FURTHER NEEDS OR WANTS AT THIS TIME. SAFETY MEASURES IN PLACE. WILL CONTINUE TO MONITOR.
--- NOTE | 2020-05-21 02:03 | NUR ---
LYING IN SEMI FOWLERS WITH EYES OPEN. AAO X3, GERARDO, FOLLOWS ALL COMMANDS. BIPAP REMOVED LONG ENOUGH FOR PT TO BE ABLE TO GET A FEW SIPS OF WATER, TOLERATED WELL. RECOVERY CONTINUES TO TAKE A WHILE. DENIES FURTHER NEEDS OR WANTS AT THIS TIME. SAFETY MEASURES IN PLACE. WILL CONTINUE TO MONITOR.
--- NOTE | 2020-05-21 04:15 | NUR ---
ATTEMPTED TO DRAW AM LABS FROM POWERGLIDE. UNABLE TO DRAW BACK BLOOD RETURN. CONTACTED FREEZING ROOM WORKER WHO WAS SUCCESSFUL. DENIES FURTHER NEEDS OR WANTS AT THIS TIME. SAFETY MEASURES IN PLACE. WILL CONTINUE TO MONITOR.
[2020-05-21 04:27] LABS: EOSINOPHILS ABSOLUTE AUTO 0.04 K/mm3 (0.00-0.68); EOSINOPHILS PERCENT AUTO 0 % (0-6); Hematocrit 40.9 % (33.0-51.0); Hemoglobin 13.8 g/dL (11.5-16.0); IMMATURE GRAN ABSOLUTE AUTO 0.18 K/mm3 (0.00-0.10); IMMATURE GRAN PERCENT AUTO 2 % (0-1); LYMPHOCYTES PERCENT AUTO 5 % (21-46); MONOCYTES ABSOLUTE AUTO 0.59 K/mm3 (0.16-1.47); MONOCYTES PERCENT AUTO 5 % (4-13); Mean Corpuscular HGB 29.9 pg (26.0-34.0); Mean Corpuscular HGB Conc 33.7 g/dL (31.5-36.5); Mean Corpuscular Volume 89 fL (80-100); Mean Platelet Volume 9.6 fL (9.1-12.4); NEUTROPHILS PERCENT AUTO 86 % (41-73); Platelet Count 259 K/mm3 (150-400); RDW Coefficient Variation 13.1 % (11.7-14.2); RDW Standard Deviation 42.5 fL (35.1-46.3); Red Blood Cell Count 4.62 M/mm3 (3.80-5.20); White Blood Cell Count 11.13 K/mm3 (4.00-11.30)
[2020-05-21 04:28] LABS: BASOPHILS ABSOLUTE AUTO 0.12 K/mm3 (0.00-0.23); BASOPHILS PERCENT AUTO 1 % (0-2)
[2020-05-21 04:39] LABS: Anion Gap 7 mmol/L (6-16); Blood Urea Nitrogen 30 mg/dL (8-24); Bun/Creatinine Ratio 55.7 (12.0-20.0); CO2, Blood 29 mmol/L (21-32); Calcium, Blood 9.3 mg/dL (8.5-10.1); Chloride, Blood 98 mmol/L (98-108); Creatinine, Blood 0.54 mg/dL (0.40-1.00); Glomerular Filtration Rate >60 (60-); Glucose, Blood 116 mg/dL (70-99); Potassium, Blood 4.8 mmol/L (3.5-5.5); Sodium, Blood 134 mmol/L (136-145)
--- NOTE | 2020-05-21 06:25 | NUR ---
DIFFICULTY MAINTAINING O2 SAT. C/O FEELING ANXIOUS, STATED THAT HSE WISHES THAT SHE COULD HAVE SOMETHING TO HELP HER CALM DOWN. PULSE OX SHOWING 83% TO 87%. BIPAP FIO2 INCREASED BY 5% UNTIL REACHING 90% FIO2 ONCE PT'S FIO2 STABLIZED AT 90%. DENIES FURTHER NEEDS OR WANTS AT THIS TIME. SAFETY MEASURES IN PLACE. WILL CONTINUE TO MONITOR.
--- NOTE | 2020-05-21 08:45 | NUR ---
ASSUMED CARE / DR KEITH: REPORT RECEIVED FROM VERA Null RN. ASSUMED CARE OF THIS PT AT APPROX 0700. ON ASSESSMENT, THE PT IS RESTING QUIETLY W/ PRECEDEX INFUSING AT 0.5 MCG/KG/HR. SHE IS TOLERATING BIPAP WELL W/ SETTINGS 10/6 & 90% FIO2. UPON EXERTION, O2 SATS HAVE DROPPED TO 85-86% & ARE NOT IMPROVING. FIO2 TITRATED TO 100% W/ SATS UP TO 91%. MONITOR SHOWS SB-SR W/ HR 50-70s, BP STABLE. PT HAS NO GI COMPLAINTS & WOULD LIKE TO EAT BREAKFAST IF SOB IMPROVES. CHAND PATENT/ DRAINING CLEAR, YELLOW URINE W/ DIURESIS PER EMAR. SKIN OVERALL CDI. PROVIDER AT BEDSIDE TO EVAL PT. HE HAS DISCUSSED POC W/ PT & PT's DAUGHTER, KARTHIKEYAN, WHO IS ALSO AT BEDSIDE. BIPAP SETTINGS HAVE BEEN ADJUSTED TO 12/[address] KEITH & FIO2 IS STILL 100%. PROVIDER STS HE IS OKAY W/ SPO2 OF 86% OR GREATER & THAT THE PT SHOULD USE EITHER BIPAP OR AIRVO, DEPENDING ON HER COMFORT LEVEL. WILL CONTINUE TO MONITOR & UPDATE NEEDED.
--- NOTE | 2020-05-21 17:20 | NUR ---
SHIFT SUMMARY: NO ACUTE CHANGES SINCE PRIOR UPDATES. PT REMAINS A&O, PRECEDEX INFUSING FOR ANXIETY, TITRATION DOC IN FLOWSHEET. LS ARE DIM T/O, PT HAS BEEN ALTERNATING BETWEEN BIPAP W/ SETTINGS 12/8 & 95% FIO2, & AIRVO W/ SETTINGS 60 L/MIN & 95% FIO2, DEPENDANT ON PT PREFERENCE. MONITOR SHOWS SR W/ HR 70S, BP STABLE. PT HAS NO GI COMPLAINTS. CHAND PATENT/ DRAINING W/ DIURESIS PER EMAR - SEE I&O. SKIN CONDITION OVERALL CDI. WILL CONTINUE TO MONITOR & REPORT OFF TO ONCOMING RN.
--- NOTE | 2020-05-21 20:00 | NUR ---
ASSUMPTION OF CARE RECEIVED HAND OFF FROM Ravi MAY RN USING SBAR. LYING IN SEMI FOWLERS WITH EYES OPEN. RESPIRATIONS EVEN, RAPID, AND UNLABORED VIA AIRVO WITH O2 AT 60L/MIN AND FIO2 OF 95%. HAD BEEN ABLE TO MAINTAIN O2 ABOVE 86%, BUT BECAME UNABLE TO MAINTAIN ABOVE 86%. OXYGEN INCREASED TO 70L/MIN. ABLE TO MAINTAIN O2 AT 90%. WILL BE RE EVALUATED BY RT. LUNG SOUNDS COARSE IN ALL ESTEVEZ, DIMINISHED WITH FINE CRACKLES NOTED IN BASES. BIPAP AT BEDSIDE READY FOR BEDTIME. SETTING CHANGED ON PER DR. KEITH. ABDOMEN SOFT AND NONDISTENDED. BOWEL SOUNDS NOTED IN ALL QUADS. CHAND CATH DRAINING CLEAR YELOW URINE TO GRAVITY. 20G POWERGLIDE NOTED TO LISSETTE. FLUSHES WITH EASE, WILL NOT DRAW BACK. INFUSING PRECEDEX AT 0.6 MCG/HR. STATES SHE WANTS TO WAIT UNTIL LATER TO TAKE HER BEDTIME MEDS THIS SHIFT. INSTRUCTED TO CALL WHEN READY FOR THEM, VOICES UNDERSTANDING. DENIES PAIN, DISCOMFORT, OR FURTHER NEEDS AT THIS TIME. SAFETY MEASURES IN PLACE. WILL CONTINUE TO MONITOR.
--- NOTE | 2020-05-21 21:45 | NUR ---
PT DESATS TO 84% WHEN SHE RESTS WITH EYES CLOSED. GIVEN HS MEDS WITH PRN XANAX PER HER REQUEST. PLACED ON BIPAP SET AT 12/8 AND FIO2 OF 95%. TOLERATING WELL, O2 SAT IS NOW 93%. STATES THAT SHE FEELS FINE WITH BIPAP ON AT THIS TIME. REITERATED FOR HER TO CALL USING CALL VALERA WITH NEEDS, VOICES UNDERTANDING. SAFETY MEASURES IN PLACE. WILL CONTINUE TO MONITOR.
--- NOTE | 2020-05-22 02:30 | NUR ---
O2 SAT DROPPED INTO THE LOW TO MID 80% AFTER PT WOKE UP. SHE REQUESTED A BREAK FROM BIPAP. PLACED ON AIRVO AT 60L AT 95%. TOOK LONGER THAN EXPECTED TO RECOVER. RT CALLED TO MANAGE AIRVO SETTING TO INSURE CORRECTNESS. UPON ARRIVAL TO BEDSIDE PT HAD RECIVERED SUFFICIENTLY WITH O2 SAT AT 88%. REQUESTS XANAX TO HELP HER RELAX, NURSING INFORMED HER THAT IT WOULD BE AVAILABLE IN AN HOUR. VOICES UNDERSTANDING AT THIS TIME. SAFETY MEASURES IN PLACE. WILL CONTINUE TO MONITOR.
--- NOTE | 2020-05-22 04:34 | NUR ---
SHIFT SUMMARY LYING IN SEMI FOWLERS WITH EYES CLOSED. AAO X4, GERARDO, FOLLOWS ALL COMMANDS. NO FURTHER ACUTE CHANGES SINCE START OF SHIFT. RESPIRATIONS EVEN AND UNLABORED ON AIRVO AT 60L AND FIO2 AT 95%. DENIES PAIN, DISCOMFORT, OR FURTHER NEEDS AT THIS TIME. SAFETY MEASURES IN PLACE. WILL CONTINUE TO MONITOR AND GIVE HAND OFF TO ONCOMING SHIFT USING SBAR.
--- NOTE | 2020-05-22 08:30 | NUR ---
ASSUMED CARE: REPORT RECEIVED FROM VERA Null RN. ASSUMED CARE OF THIS PT AT APPROX 0700. ON ASSESSMENT, THE PT IS RESTING QUIETLY & AIRVO IS IN USE. THE PT IS TOLERATING THIS OKAY W/ O2 SATS > 87% ON AVG. DESATS W/ ACTIVITY TO 80%. LS ARE DIM T/O. MONITOR SHOWS SR W/ HR 70s, BP STABLE. PT HAS NO GI COMPLAINTS & IS TOLERATING PO INTAKE WELL. CHAND PATENT/ DRAINING CLEAR YELLOW URINE. SKIN CONDITION OVERALL CDI. WILL CONTINUE TO MONITOR & UPDATE NEEDED.
--- NOTE | 2020-05-22 10:05 | NUR ---
UPDATE: PT IS EXPERIENCING PERSISTANT DESATS TO 79% & IS NOT RECOVERING W/ USE OF AIRVO, SETTINGS: 60 L/MIN & 95% FIO2. BIPAP HAS BEEN PLACED W/ SETTINGS 06/27 & 100% FIO2 W/ LITTLE IMPROVEMENT NOTED. PT HAS INCREASED C/O ANXIETY & IS REQUESTING TO HAVE BIPAP REMOVED. AIRVO HAS BEEN TRIALED AGAIN W/ WORSENING DESATS NOTED. THIS RN HAS ASKED DR GUERRERO IF PRECEDEX DOSE MAY BE INCREASED TO 1.4 MCG/KG/HR & SHE STS THIS IS OKAY. NURSE NOTIFY HAS BEEN PLACED. PRECEDEX TITRATED UP TO 1.2 MCG/KG/HR WHILE THIS RN REMAINS AT BEDSIDE. PT IS NOT TOLERATING BIPAP BETTER, BUT O2 SATS ARE SLOW TO RECOVER & PT REMAINS AT APPROX 86% ON SPO2 MONITOR. THE PT HAS BEEN REPOSITIONED TO L SIDE. DISCUSSED POSSIBILITY OF PRONING W/ DR GUERRERO. SHE KNOWS THE PT FROM PRIOR SHIFTS & FEELS THAT THIS WILL ONLY MAKE HER MORE ANXIOUS, BASED ON PRIOR ATTEMPTS AT PRONING.
--- NOTE | 2020-05-22 10:35 | NUR ---
DR Jeana CHEN: PROVIDER AT BEDSIDE TO NABILA PT THIS AM. HE HAS DISCUSSED CONTINUED POC W/ PT & PT's DAUGHTER, KARTHIKEYAN, WHO IS AT BEDSIDE. THEY HAVE BRIEFLY TOUCHED ON COMFORT MEASURES & HE FEELS THAT THE PT UNDERSTANDS WE ARE DOING EVERYTHING POSSIBLE FOR HER AT THIS TIME & THAT THE NEXT STEP WOULD BE TO MAKE HER COMFORTABLE. NO CHANGES TO CURRENT POC, CONTINUE PER YAM CURER SERVICE.
--- NOTE | 2020-05-22 18:50 | NUR ---
SHIFT SUMMARY: NO ACUTE CHANGES SINCE PRIOR UPDATES. PT REMAINS A&O, ABLE TO EXPRESS NEEDS. PT HAS REMAINED ON AIRVO FOR MOST OF THIS AFTERNOON. HER O2 SATS HAVE BEEN > 86% ON AVG, W/ NOTABLE DESATS TO 79% WHEN PT IS MOVING IN BED OR NOT FOCUSED ON DEEP BREATHING. AIRVO & BIPAP SETTINGS ARE UNCHANGED. MONITOR SHOWS SR W/ HR 60-70s, BP STABLE. PT HAS NO GI COMPLAINTS, CHAND PATENT/ DRAINING W/ DIURESIS PER EMAR - SEE I&O. SKIN OVERALL CDI. WILL CONTINUE TO MONITOR & REPORT OFF TO ONCOMING RN.
--- NOTE | 2020-05-22 21:00 | NUR ---
ASSUMED CARE: PT IS A&O. SHE APPEARS WEAK, HARDLY ANSWERING QUESTIONS OR OPENING EYES. IN SR. SBP IN THE 140S. KEVIN AT TIMES 50-60S. PT IS MAXXED OUT ON AIRVO AT 60L AND 95% FIO2. PT WAS SATTING AROUND 85% AND NOT RECOVERING SO A NON-REBREATHER WAS PLACED OVER AIRVO CANULA AT 15L. PT SPO2 NOW AT 91%. SHE IS REFUSING BIPAP AT THIS TIME. BT X 4. REFUSED BOWEL CARE MEDS AT THIS TIME. CHAND IN PLACE. PG TO LISSETTE. PRECEDEX INFUSING AT 1.2MCG AND NS AT TKO. WILL CONTINUE TO MONITOR
--- NOTE | 2020-05-23 02:42 | NUR ---
PT REQUESTING FOR BIPAP TO BE REMOVED. EXPLAINED THAT EVEN ON BIPAP HER SATS ARE HIGH 80S AND GOING BACK ON AIRVO WOULD LIKELY CAUSE A SIGNIFICANT DROP IN DESATS. PT AGREEABLE. BIPAP REMAINS IN PLACE
[2020-05-23 04:03] LABS: Anion Gap 7 mmol/L (6-16); Blood Urea Nitrogen 25 mg/dL (8-24); Bun/Creatinine Ratio 51.3 (12.0-20.0); CO2, Blood 28 mmol/L (21-32); Calcium, Blood 8.6 mg/dL (8.5-10.1); Chloride, Blood 97 mmol/L (98-108); Creatinine, Blood 0.49 mg/dL (0.40-1.00); Glomerular Filtration Rate >60 (60-); Glucose, Blood 133 mg/dL (70-99); Potassium, Blood 4.7 mmol/L (3.5-5.5); Sodium, Blood 132 mmol/L (136-145)
--- NOTE | 2020-05-23 05:51 | NUR ---
SHIFT SUMMARY: PT SLEPT MAJORITY OF NIGHT. INITIALLY SHE DID NOT SAT WELL ON JUST AIRVO AT 60L AND 95% FIO2. SHE REFUSED BIPAP AT THAT TIME. RT SILVIA ADDED A NON REBREATHER OVER THE AIRVO CANNULA AT 15L. SPO2 BETWEEN 88-91%. EVENTUALLY PT DESATTED INTO 85% RANGE AND DID NOT GO ABOVE THAT. RT WAS ABLE TO PERSUADE PT TO WEAR BIPAP WHILE SLEEPING. PT AGREED AND SATS STAYED AROUND 91%. THIS AM SHE REQUESTED A BREAK FROM BIPAP AND WANTED SOME WATER. PUT AIRVO AND NON-REBREATHER BACK ON PT AND SHE IS >88%. IN SR. SINUS KEVIN AT TIMES. CHAND PATENT AND DRAINING. PG INFUSING WITH PRECEDEX AT 1.2MCG AND NS TKO. PT IS STILL ABLE TO REPOSITION SELF. SHE DID STATE SHE WAS TIRED OF FEELING LIKE THIS. CALL LIGHT IN REACH AND BED IS IN LOWEST POSITION. WILL PASS REPORT TO ONCOMING SHIFT
--- NOTE | 2020-05-23 07:12 | NUR ---
ASSUMPTION OF CARE RECEIVED REPORT FROM RASHAWN LOPEZ. ASSUMED CARE OF PATIENT. PATIENT IN BED WITH EYES CLOSED, VITALS STABLE. NO S/S OF DISTRESS.
--- NOTE | 2020-05-23 07:43 | NUR ---
OXYGEN PATIENT WITH O2 SATS 80-85% ON 15L NON-REBREATHER AND AIRVO. OFFERED TO PLACE BIPAP ON PATIENT. PATIENT DECLINED, EDUCATED PATIENT REGARDING LOW O2 AND NEED FOR INCREASED 02. REMOVED NON-REBREATHER FOR A SIP OF WATER, 02 SATS DECREASED TO 75%. NON-REBREATHER REPLACED AND SATS NOW 85% RT AT BEDSIDE. WILL CONTINUE TO MONITOR AND TREAT.
--- NOTE | 2020-05-23 10:29 | NUR ---
COMFORT CARE RECEIVED NEW ORDERS FROM DR. CHEN FOR COMFORT. NOTIFIED TO CESAR AND PALLIATIVE. DAUGHTER TO BEDSIDE. NON-REBREATHER REMOVED, PATIENT REQUESTED TO KEEP AIRVO IN PLACE. MEDICATIONS GIVEN CHARTED.
--- NOTE | 2020-05-23 18:30 | NUR ---
SHIFT SUMMARY PT REMAINS ALERT AND ORIENTED. DENIES PAIN, BUT HAS FREQUENT C/O SOB AND ANXIETY. MEDICATED THROUGH SHIFT CHARTED. END OF SHIFT VITALS CHARTED. CHAND TO GRAVITY, WITH CLEAR, YELLOW URINE. CALL LIGHT IN REACH.
--- NOTE | 2020-05-23 20:00 | NUR ---
PT UPDATE PT RESTIGN IN ROOM TACHYPNIC ON AIRVO AT THIS TIME. PT DENIES ANY PAIN. DOES REQUEST MEDS FOR WORK OF BREATHIING. PT DENYING ANXIETY. PT DID REQUEST SLEEP MEDS. FACE WASHED AND COOL CLOTH PLACED ON FOREHEAD. PT DENIED OTHER NEEDS. REPORTS WANTS TO SLEEP. REPORTS GETTING ENOUGH OXYGEN. AIRVO REMAINS IN PLACE.
--- NOTE | 2020-05-24 04:30 | NUR ---
0340 PT IN DISTRESS IN ROOM, RETRACTIONS NOTED ON RESP. PT MEDICATED PER EMAR FOR AIRHUNGER AND ANXIETY/DISTRESS. 0400 PT HR STARTING TO DECLINE, RESP RATE NOTED TO BE 16/MIN W/ SATS >92%. PT IS UNRESPONSIVE TO VERBAL OR PHYSICAL STIMULI. SUPERVISOR PILE DRIVING NOTIFIED OF PT DECLINE. 0410 PT HR KEVIN IN THE 30'S RESP <6/MIN. 0417 TIME OF . O2 REMOVED FROM PT. SUPERVISOR [employer]LE [employer]IVING NOTIFIED. RT NOTIFIED.
--- NOTE | 2020-05-24 06:15 | NUR ---
NEXT OF KIN NOTIFIED OF . DAUGHTER TO COME AND MINE CAPTAIN BELONGINGS AT SOME POINT TODAY. BELONGINGS WILL BE PLACED IN CLEAR PLASTIC BAG AND LABELED OUTSIDE OF PT ROOM. DENTURES IN PLACE IN PT MOUTH AND WILL GO WITH PT TO HOME.
== END 2020-05-24 04:17 | DRG 177 ==
LOC: ER 16:30 → PCU 16:31 → ICUW 16:31
PROVIDERS: Emergency Medicine; Internal Medicine; Internal Medicine Critical Care Medicine; Internal Medicine Pulmonary Disease; ADMIT Hospitalist
PROC: 5A09357 Assistance with Respiratory Ventilation, Less than 24 Consecutive Hours, Continuous Positive Airway Pressure (ICD-10-PCS; principal; 2020-05-21)
DX: U07.1 COVID-19 (principal); J12.89 Other viral pneumonia; J96.01 Acute respiratory failure with hypoxia; J44.1 Chronic obstructive pulmonary disease with (acute) exacerbation; C85.90 Non-Hodgkin lymphoma, unspecified, unspecified site; Z90.12 Acquired absence of left breast and nipple; Z87.891 Personal history of nicotine dependence; Z51.5 Encounter for palliative care; G47.00 Insomnia, unspecified; Z66 Do not resuscitate; M54.5 Low back pain; J84.10 Pulmonary fibrosis, unspecified; F32.9 Major depressive disorder, single episode, unspecified; E66.9 Obesity, unspecified; Z68.31 Body mass index [BMI] 31.0-31.9, adult; Z85.3 Personal history of malignant neoplasm of breast
CPT/HCPCS: 36415; 36600; 71045; 71260; 80048; 80053; 80076; 80202; 81003; 82465; 82565; 82728; 82803; 83520; 83605; 83735; 83880; 84100; 84145; 84478; 84484; 85025; 85379; 87040; 87070; 87205; 93005; 93010; 94660; 96365; 96367; 96375; 99285-25; A9270; C1751; J0456; J0692; J0696; J1100; J1650; J1940; J2060; J2270; J3262; J3370; J7050; Q9967; U0003; U0004